=== PATIENT | female | born 1960 | race Caucasian/White ===

== ENCOUNTER 2021-08-18 16:51 | Emergency (ER) | payer OTHER ==
[~2021-08-18] VITALS: Ht 157.5 cm; Wt 83.0 kg
[2021-08-18] MEDS ORDERED: NALOXONE HCL 1 MG/ML 2 ML SYRINGE ONE (16:57)
[2021-08-18] MEDS ORDERED: SODIUM CHLORIDE 0.9% 1,000 ML IV ONE (17:15)
[2021-08-18 17:49] LABS: BASOPHILS % (AUTO) 0.3 % (0.0-2.0); EOSINOPHILS % (AUTO) 0.5 % (1.0-6.0); HEMATOCRIT 43.4 % (36-46); HEMOGLOBIN 15.1 g/dL (12.0-16.0); LYMPHOCYTES # (AUTO) 1.5 K/uL (1.0-4.8); LYMPHOCYTES % (AUTO) 16.2 % (22.0-44.0); MEAN CORPUSCULAR HEMOGLOBIN 29.9 pg (26.0-34.0); MEAN CORPUSCULAR HGB CONC 34.7 G/dL (31.0-37.0); MEAN CORPUSCULAR VOLUME 86 fL (80-100); MONOCYTES # (AUTO) 0.9 K/uL (0.1-1.0); MONOCYTES % (AUTO) 9.6 % (2.0-9.0); NEUTROPHILS % (AUTO) 73.4 % (40.0-70.0); PLATELET COUNT (AUTO) 385 K/uL (150-450); RED BLOOD CELL COUNT(AUTO) 5.04 MIL/uL (4.00-5.20); RED CELL DISTRIBUTION WIDTH 15.1 % (11.5-14.5)
[2021-08-18 17:58] LABS: CALCIUM, TOTAL 8.5 mg/dL (8.8-10.5); CREATININE 0.98 mg/dL (0.60-1.30); POTASSIUM 3.2 mmol/L (3.5-5.1)
[2021-08-18 18:04] LABS: ALBUMIN 3.3 g/dL (3.4-5.0); BILIRUBIN,TOTAL 0.2 mg/dL (0.1-1.0); MAGNESIUM 1.7 mg/dL (1.80-2.40)
[2021-08-18 19:54] LABS: AMPHET/METH SCREEN,URINE NEGATIVE (NEGATIVE); BARBITURATE SCREEN, URINE NEGATIVE (NEGATIVE); BENZODIAZEPINES SCREEN,URINE NEGATIVE (NEGATIVE); CANNABINOID SCREEN,URINE NEGATIVE (NEGATIVE); COCAINE SCREEN,URINE NEGATIVE (NEGATIVE); METHADONE SCREEN, URINE NEGATIVE (NEGATIVE); OPIATE SCREEN,URINE NEGATIVE (NEGATIVE)
[2021-08-18 19:55] LABS: PHENCYCLIDINE SCREEN,URINE NEGATIVE (NEGATIVE)
[2021-08-18 21:03] VITALS: BP 115/65
== END 2021-08-18 21:17 | disposition home or self-care (01) ==
LOC: EMS 16:51
DX: F10.129 Alcohol abuse with intoxication, unspecified (principal); R45.851 Suicidal ideations; F32.A Depression, unspecified; I73.9 Peripheral vascular disease, unspecified
CPT/HCPCS: 99285; 96360; 80053; 83735; 85025; 36415; 80307; G0480; J2310; J7030

== ENCOUNTER 2022-04-29 16:42 | Inpatient (IN) | payer OTHER ==
[~2022-04-29] VITALS: Ht 157.5 cm; Wt 66.0 kg
[2022-04-29] MEDS ORDERED: SODIUM CHLORIDE 0.9% 1,000 ML IV ONE (17:45)
[2022-04-29] MEDS ORDERED: LORazepam 2 MG/ML VIAL IVP ONE (17:45)
[2022-04-29 18:13] LABS: BASOPHILS % (AUTO) 0.5 % (0.0-2.0); EOSINOPHILS % (AUTO) 0.4 % (1.0-6.0); HEMATOCRIT 44.5 % (36-46); HEMOGLOBIN 15.1 g/dL (12.0-16.0); LYMPHOCYTES # (AUTO) 0.8 K/uL (1.0-4.8); LYMPHOCYTES % (AUTO) 12.2 % (22.0-44.0); MEAN CORPUSCULAR HEMOGLOBIN 34.5 pg (26.0-34.0); MEAN CORPUSCULAR HGB CONC 33.9 G/dL (31.0-37.0); MEAN CORPUSCULAR VOLUME 102 fL (80-100); MONOCYTES # (AUTO) 0.7 K/uL (0.1-1.0); MONOCYTES % (AUTO) 11.1 % (2.0-9.0); NEUTROPHILS # (AUTO) 4.8 K/uL (1.8-7.7); NEUTROPHILS % (AUTO) 75.8 % (40.0-70.0); PLATELET COUNT (AUTO) 105 K/uL (150-450); RED BLOOD CELL COUNT(AUTO) 4.37 MIL/uL (4.00-5.20); RED CELL DISTRIBUTION WIDTH 15.6 % (11.5-14.5)
[2022-04-29 18:24] LABS: ANION GAP 17 mmol/L (8-16); CALCIUM, TOTAL 8.9 mg/dL (8.8-10.5); CARBON DIOXIDE 22 mmol/L (22-29); CHLORIDE 103 mmol/L (98-107); CREATININE 0.54 mg/dL (0.60-1.30); GLOMERULAR FILTR. RATE CALC > 60 mL/min (>60); GLUCOSE,RANDOM 105 mg/dL (70-110); POTASSIUM 3.9 mmol/L (3.5-5.1); SODIUM SERUM 142 mmol/L (136-145); UREA NITROGEN, BLOOD 13 mg/dL (7-18)
[2022-04-29 18:30] LABS: ALANINE AMINOTRANSFERASE 104 U/L (12-78); ALBUMIN 4.1 g/dL (3.4-5.0); ALKALINE PHOSPHATASE 116 U/L (46-116); ASPARTATE AMINOTRANSFERASE 137 U/L (15-37); BILIRUBIN,TOTAL 0.5 mg/dL (0.1-1.0); TOTAL PROTEIN, SERUM 7.6 g/dL (6.4-8.2)
[2022-04-29 19:28] LABS: COVID AG,FIA SOURCE NASOPHARYNGEAL
[2022-04-29] MEDS ORDERED: MAGNESIUM SULFATE 2 GM, MVI, ADULT NO.1 WITH VIT K 10 ML, THIAMINE 100 MG, FOLIC ACID 1... IV ONE ×5 (20:30)
[2022-04-29] MEDS ORDERED: ONDANSETRON HCL 4 MG/2 ML VIAL IVP PRN (20:30)
[2022-04-29] MEDS ORDERED: MAGNESIUM HYDROXIDE SUSPENSION 30 ML UDCUP PO PRN (20:30)
[2022-04-29] MEDS ORDERED: MAGNESIUM SULFATE 4 GM/WATER 100 ML IV PRN (20:45)
[2022-04-29] MEDS ORDERED: MAGNESIUM OXIDE 400 MG TABLET PO PRN (20:45)
[2022-04-29] MEDS ORDERED: MAGNESIUM SULFATE 2 GM/WATER 50 ML IV PRN (20:45)
[2022-04-29] MEDS: FAMOTIDINE 20 MG TABLET PO SCH (21:12)
[2022-04-30] MEDS: LORazepam 2 MG/ML VIAL IVP PRN ×4 (00:22→20:11)
[2022-04-30 09:46] VITALS: BP 111/87
[2022-04-30] MEDS: MULTIVITAMINS WITH MINERALS, THERAPEUTIC TABLET PO SCH (10:28)
[2022-04-30] MEDS: FAMOTIDINE 20 MG TABLET PO SCH ×2 (10:28→20:11)
[2022-04-30] MEDS: ACETAMINOPHEN 325 MG TABLET PO PRN ×2 (10:28→16:27)
[2022-04-30 12:04] VITALS: BP 125/80
[2022-04-30 15:40] VITALS: BP 136/92
[2022-04-30] MEDS: BISMUTH SUBSALICYLATE 262 MG CHEWABLE TABLET CHEW PRN (16:49)
[2022-04-30 20:02] VITALS: BP 114/91
[2022-04-30] MEDS: NICOTINE 21 MG/24 HOUR PATCH TD SCH (20:11)
[2022-04-30 23:57] VITALS: BP 141/82
[2022-05-01] MEDS: ACETAMINOPHEN 325 MG TABLET PO PRN ×2 (02:37→09:17)
[2022-05-01 05:50] VITALS: BP 144/87
[2022-05-01 08:00] VITALS: BP 165/101
[2022-05-01] MEDS: FAMOTIDINE 20 MG TABLET PO SCH ×2 (09:10→20:35)
[2022-05-01] MEDS: MULTIVITAMINS WITH MINERALS, THERAPEUTIC TABLET PO SCH (09:10)
[2022-05-01] MEDS: LORazepam 2 MG/ML VIAL IVP PRN ×2 (09:10→20:35)
[2022-05-01] MEDS: NICOTINE 21 MG/24 HOUR PATCH TD SCH (09:10)
[2022-05-01 12:00] VITALS: BP 153/106
[2022-05-01] MEDS: AmLODIPine BESYLATE 5 MG TABLET PO SCH (12:19)
[2022-05-01] MEDS: BISMUTH SUBSALICYLATE 262 MG CHEWABLE TABLET CHEW PRN (15:28)
[2022-05-01 16:00] VITALS: BP 135/88
[2022-05-01 20:40] VITALS: BP 188/116
[2022-05-01] MEDS: HydrALAZINE HCL 20 MG/ML VIAL IVP PRN (22:11)
[2022-05-01 23:18] VITALS: BP 176/109
[2022-05-02] MEDS: ACETAMINOPHEN 325 MG TABLET PO PRN ×4 (02:56→20:14)
[2022-05-02 04:00] VITALS: BP 159/98
[2022-05-02] MEDS: HydrALAZINE HCL 20 MG/ML VIAL IVP PRN ×2 (06:01→17:02)
[2022-05-02 07:48] LABS: ALANINE AMINOTRANSFERASE 61 U/L (12-78); ALBUMIN 3.5 g/dL (3.4-5.0); ALKALINE PHOSPHATASE 100 U/L (46-116); ANION GAP 14 mmol/L (8-16); ASPARTATE AMINOTRANSFERASE 45 U/L (15-37); BILIRUBIN,TOTAL 0.5 mg/dL (0.1-1.0); CALCIUM, TOTAL 9.1 mg/dL (8.8-10.5); CARBON DIOXIDE 22 mmol/L (22-29); CHLORIDE 106 mmol/L (98-107); CREATININE 0.54 mg/dL (0.60-1.30); GLOMERULAR FILTR. RATE CALC > 60 mL/min (>60); GLUCOSE,RANDOM 97 mg/dL (70-110); POTASSIUM 3.3 mmol/L (3.5-5.1); SODIUM SERUM 142 mmol/L (136-145); TOTAL PROTEIN, SERUM 6.8 g/dL (6.4-8.2); UREA NITROGEN, BLOOD 6 mg/dL (7-18)
[2022-05-02 08:12] VITALS: BP 159/106
[2022-05-02] MEDS: AmLODIPine BESYLATE 5 MG TABLET PO SCH (09:51)
[2022-05-02] MEDS: MULTIVITAMINS WITH MINERALS, THERAPEUTIC TABLET PO SCH (09:51)
[2022-05-02] MEDS: NICOTINE 21 MG/24 HOUR PATCH TD SCH (09:51)
[2022-05-02] MEDS: FAMOTIDINE 20 MG TABLET PO SCH ×2 (09:51→20:14)
[2022-05-02] MEDS ORDERED: POTASSIUM CHL 10 MEQ/WATER 50 ML IV PRN (10:30)
[2022-05-02] MEDS ORDERED: POTASSIUM CHLORIDE 20 MEQ ER TABLET PO PRN (10:30)
[2022-05-02] MEDS: METOPROLOL TARTRATE 25 MG TABLET PO SCH ×2 (11:41→21:53)
[2022-05-02 16:24] VITALS: BP 180/112
[2022-05-02 16:49] VITALS: BP 165/111
[2022-05-02] MEDS ORDERED: AmLODIPine BESYLATE 5 MG TABLET PO ONE (17:15)
[2022-05-02 20:01] VITALS: BP 115/68
[2022-05-03 00:12] VITALS: BP 126/86
[2022-05-03 04:38] VITALS: BP 117/91
[2022-05-03] MEDS: ACETAMINOPHEN 325 MG TABLET PO PRN (04:38)
[2022-05-03 08:05] VITALS: BP 146/93
[2022-05-03] MEDS: METOPROLOL TARTRATE 25 MG TABLET PO SCH (08:11)
[2022-05-03] MEDS: MULTIVITAMINS WITH MINERALS, THERAPEUTIC TABLET PO SCH (08:11)
[2022-05-03] MEDS: FAMOTIDINE 20 MG TABLET PO SCH (08:11)
[2022-05-03] MEDS: NICOTINE 21 MG/24 HOUR PATCH TD SCH (08:12)
[2022-05-03] MEDS ORDERED: AmLODIPine BESYLATE 10 MG TABLET PO SCH (09:00)
[2022-05-03 11:55] VITALS: BP 139/87
[2022-05-03 12:07] LABS: APPEARANCE,URINE CLEAR (CLEAR); BILIRUBIN,URINE NEGATIVE (NEGATIVE); GLUCOSE, URINE (UA) NEGATIVE (NEGATIVE); KETONES,URINE NEGATIVE (NEGATIVE); LEUKOCYTE ESTERASE ,URINE NEGATIVE (NEGATIVE); NITRATE,URINE NEGATIVE (NEGATIVE); OCCULT BLOOD,URINE NEGATIVE (NEGATIVE); PROTEIN,URINE NEGATIVE (NEGATIVE); SPECIFIC GRAVITIY, URINE 1.009 (1.003-1.030); UROBILINOGEN,URINE <=1.0 mg/dL (<=1.0)
[2022-05-03 12:13] LABS: AMPHET/METH SCREEN,URINE NEGATIVE (NEGATIVE); BARBITURATE SCREEN, URINE NEGATIVE (NEGATIVE); BENZODIAZEPINES SCREEN,URINE NEGATIVE (NEGATIVE); CANNABINOID SCREEN,URINE NEGATIVE (NEGATIVE); COCAINE SCREEN,URINE NEGATIVE (NEGATIVE); METHADONE SCREEN, URINE NEGATIVE (NEGATIVE); OPIATE SCREEN,URINE NEGATIVE (NEGATIVE); PHENCYCLIDINE SCREEN,URINE NEGATIVE (NEGATIVE)
== END 2022-05-03 15:05 | disposition home or self-care (01) | DRG 897 ==
LOC: EMS 16:48 → ICUN 21:00 → UNDOADMIN 21:00 → ICUN 04-30 05:00 → 5N 04-30 05:00
PROVIDERS: ADMIT Internal Medicine; ATTEND Internal Medicine
DX: F10.139 Alcohol abuse with withdrawal, unspecified (principal); F33.1 Major depressive disorder, recurrent, moderate; E83.42 Hypomagnesemia; Y90.8 Blood alcohol level of 240 mg/100 ml or more; F99 Mental disorder, not otherwise specified; Z20.822 Contact with and (suspected) exposure to COVID-19; D69.6 Thrombocytopenia, unspecified; E87.6 Hypokalemia; I10 Essential (primary) hypertension; I73.9 Peripheral vascular disease, unspecified
CPT/HCPCS: 80053; 80307; 81003; 83735; 84132; 85025; 99285; G0480; J0360; J2060; J3411; J3475; J3490; J7030

== ENCOUNTER 2022-07-28 16:45 | Inpatient (IN) | payer MEDICAID, OTHER ==
[~2022-07-28] VITALS: Ht 152.4 cm; Wt 69.9 kg
[2022-07-28] MEDS ORDERED: AMLO10TA55 PO (18:46)
[2022-07-28] MEDS ORDERED: SERT-439 PO (18:46)
[2022-07-28] MEDS ORDERED: LISI10TA24 PO (18:46)
[2022-07-28] MEDS ORDERED: ATOR40TA71 PO (18:46)
[2022-07-28] MEDS ORDERED: FAMO20TA8 PO (18:46)
[2022-07-28] MEDS ORDERED: FOLI-130 PO (18:46)
[2022-07-28] MEDS ORDERED: MIRT7.5T11 PO (18:48)
[2022-07-28] MEDS ORDERED: METO-408 PO (18:48)
[2022-07-28 19:11] LABS: COVID AG,FIA SOURCE NASOPHARYNGEAL
[2022-07-28 19:25] LABS: BASOPHILS % (AUTO) 0.8 % (0.0-2.0); EOSINOPHILS % (AUTO) 1.1 % (1.0-6.0); HEMATOCRIT 43.7 % (36-46); HEMOGLOBIN 14.7 g/dL (12.0-16.0); LYMPHOCYTES # (AUTO) 1.4 K/uL (1.0-4.8); LYMPHOCYTES % (AUTO) 30.3 % (22.0-44.0); MEAN CORPUSCULAR HEMOGLOBIN 33.1 pg (26.0-34.0); MEAN CORPUSCULAR HGB CONC 33.7 G/dL (31.0-37.0); MEAN CORPUSCULAR VOLUME 98 fL (80-100); MONOCYTES # (AUTO) 0.4 K/uL (0.1-1.0); MONOCYTES % (AUTO) 9.1 % (2.0-9.0); NEUTROPHILS # (AUTO) 2.8 K/uL (1.8-7.7); NEUTROPHILS % (AUTO) 58.7 % (40.0-70.0); PLATELET COUNT (AUTO) 197 K/uL (150-450); RED BLOOD CELL COUNT(AUTO) 4.46 MIL/uL (4.00-5.20); RED CELL DISTRIBUTION WIDTH 16.4 % (11.5-14.5)
[2022-07-28 19:33] LABS: ANION GAP 16 mmol/L (8-16); CALCIUM, TOTAL 8.6 mg/dL (8.8-10.5); CARBON DIOXIDE 24 mmol/L (22-29); CHLORIDE 105 mmol/L (98-107); CREATININE 0.63 mg/dL (0.60-1.30); GLOMERULAR FILTR. RATE CALC > 60 mL/min (>60); GLUCOSE,RANDOM 84 mg/dL (70-110); POTASSIUM 3.7 mmol/L (3.5-5.1); SODIUM SERUM 145 mmol/L (136-145)
[2022-07-28 19:35] LABS: ALANINE AMINOTRANSFERASE 31 U/L (12-78); ALBUMIN 3.7 g/dL (3.4-5.0); ALKALINE PHOSPHATASE 121 U/L (46-116); ASPARTATE AMINOTRANSFERASE 53 U/L (15-37); BILIRUBIN,TOTAL 0.3 mg/dL (0.1-1.0); TOTAL PROTEIN, SERUM 7.7 g/dL (6.4-8.2)
[2022-07-28] MEDS ORDERED: LORazepam 2 MG TABLET PO ONE (22:45)
[2022-07-28] MEDS ORDERED: HALOPERIDOL 5 MG TABLET PO PRN (22:45)
[2022-07-29] VITALS (8 sets, daily range): BP systolic 130–152; BP diastolic 78–89; PULSE 98–108; RESP 18–19; TEMP 97.6–98.7; O2SAT 94–99
[2022-07-29] MEDS: ZOLPIDEM TARTRATE 10 MG TABLET PO PRN ×3 (01:45→20:28)
[2022-07-29] MEDS: LORazepam 2 MG TABLET PO PRN (02:15)
[2022-07-29] MEDS ORDERED: ALBUTEROL SULFATE HFA 90 MCG/PUFF 8 GM INHALER IH PRN (10:45)
[2022-07-29] MEDS ORDERED: DOCUSATE SODIUM 100 MG CAPSULE PO PRN (10:45)
[2022-07-29] MEDS ORDERED: MAG HYDROX/AL HYDROX/SIMETH ES 30 ML SUSPENSION UDCUP PO PRN (10:45)
[2022-07-29] MEDS ORDERED: LOPERAMIDE HCL 2 MG CAPSULE PO PRN (10:45)
[2022-07-29] MEDS ORDERED: GuaiFENesin/D-METHORPHAN [SUGAR-FREE] 200-20MG/10 ML SYRUP UDCUP PO PRN (10:45)
[2022-07-29] MEDS ORDERED: CloNIDine HCL 0.1 MG TABLET PO PRN (10:45)
[2022-07-29] MEDS ORDERED: ONDANSETRON HCL 4 MG TABLET PO PRN (10:45)
[2022-07-29] MEDS ORDERED: PETROLATUM,WHITE 28 GM JELLY TP PRN (10:45)
[2022-07-29] MEDS ORDERED: MAGNESIUM HYDROXIDE SUSPENSION 30 ML UDCUP PO PRN (10:45)
[2022-07-29] MEDS ORDERED: ACETAMINOPHEN 325 MG TABLET PO PRN (10:45)
[2022-07-29] MEDS: NICOTINE 14 MG/24 HOUR PATCH TD PRN (11:02)
[2022-07-29] MEDS: FAMOTIDINE 20 MG TABLET PO SCH (16:13)
[2022-07-29] MEDS: MIRTAZAPINE 15 MG TABLET PO SCH (20:28)
[2022-07-29] MEDS: IBUPROFEN 400 MG TABLET PO PRN (20:29)
[2022-07-30 07:25] LABS: THYROID STIMULATING HORMONE 4.84 uIU/mL (0.36-3.74)
[2022-07-30 07:48] LABS: CHOL/HDL RATIO 1.9 (3.9-5.7)
[2022-07-30] MEDS ORDERED: FOLIC ACID 1 MG TABLET PO SCH (09:00)
[2022-07-30] MEDS: AmLODIPine BESYLATE 10 MG TABLET PO SCH (09:04)
[2022-07-30] MEDS: ATORVASTATIN CALCIUM 40 MG TABLET PO SCH (09:04)
[2022-07-30] MEDS: METOPROLOL SUCCINATE 25 MG ER TABLET PO SCH (09:04)
[2022-07-30] MEDS: FAMOTIDINE 20 MG TABLET PO SCH ×2 (09:04→16:53)
[2022-07-30] MEDS: FOLIC ACID 1 MG TABLET PO SCH (09:04)
[2022-07-30] MEDS: MULTIVITAMINS WITH MINERALS, THERAPEUTIC TABLET PO SCH (09:05)
[2022-07-30] MEDS: THIAMINE 100 MG TABLET PO SCH (09:09)
[2022-07-30 09:56] VITALS: BP 152/92; PULSE 96; RESP 18; TEMP 97; O2SAT 100
[2022-07-30 20:20] VITALS: BP 140/77; PULSE 86; RESP 19; TEMP 98.4; O2SAT 97
[2022-07-30] MEDS: ZOLPIDEM TARTRATE 10 MG TABLET PO PRN (20:46)
[2022-07-30] MEDS: MIRTAZAPINE 15 MG TABLET PO SCH (20:46)
[2022-07-30 22:00] VITALS: BP 143/80; PULSE 90; RESP 18; TEMP 98.4; O2SAT 97
[2022-07-30] MEDS: IBUPROFEN 400 MG TABLET PO PRN (22:03)
[2022-07-30 23:03] VITALS: TEMP 98.2
[2022-07-31] MEDS: LORazepam 2 MG TABLET PO PRN (01:52)
[2022-07-31] MEDS: FAMOTIDINE 20 MG TABLET PO SCH ×2 (09:06→16:39)
[2022-07-31] MEDS: FOLIC ACID 1 MG TABLET PO SCH (09:06)
[2022-07-31] MEDS: MULTIVITAMINS WITH MINERALS, THERAPEUTIC TABLET PO SCH (09:06)
[2022-07-31] MEDS: AmLODIPine BESYLATE 10 MG TABLET PO SCH (09:06)
[2022-07-31] MEDS: THIAMINE 100 MG TABLET PO SCH (09:07)
[2022-07-31] MEDS: ATORVASTATIN CALCIUM 40 MG TABLET PO SCH (09:07)
[2022-07-31] MEDS: NICOTINE 14 MG/24 HOUR PATCH TD PRN (09:08)
[2022-07-31] MEDS: METOPROLOL SUCCINATE 25 MG ER TABLET PO SCH (09:11)
[2022-07-31 09:16] VITALS: BP 147/99; PULSE 98; RESP 18; TEMP 97.6; O2SAT 96
[2022-07-31] MEDS: IBUPROFEN 400 MG TABLET PO PRN ×2 (13:12→21:20)
[2022-07-31] MEDS: MIRTAZAPINE 15 MG TABLET PO SCH (20:10)
[2022-07-31 21:18] VITALS: BP 103/73; PULSE 62; RESP 18; TEMP 97.1; O2SAT 98
[2022-08-01] MEDS: THIAMINE 100 MG TABLET PO SCH (08:37)
[2022-08-01] MEDS: FAMOTIDINE 20 MG TABLET PO SCH ×2 (08:37→16:24)
[2022-08-01] MEDS: MULTIVITAMINS WITH MINERALS, THERAPEUTIC TABLET PO SCH (08:37)
[2022-08-01] MEDS: FOLIC ACID 1 MG TABLET PO SCH (08:38)
[2022-08-01] MEDS: METOPROLOL SUCCINATE 25 MG ER TABLET PO SCH (08:38)
[2022-08-01] MEDS: AmLODIPine BESYLATE 10 MG TABLET PO SCH (08:38)
[2022-08-01] MEDS: ATORVASTATIN CALCIUM 40 MG TABLET PO SCH (08:38)
[2022-08-01] MEDS: NICOTINE 14 MG/24 HOUR PATCH TD PRN (08:44)
[2022-08-01 11:04] VITALS: BP 148/89; PULSE 100; RESP 18; TEMP 97.5; O2SAT 97
[2022-08-01 20:10] VITALS: BP 142/85; PULSE 90; RESP 18; TEMP 97.6; O2SAT 98
[2022-08-01] MEDS: LORazepam 2 MG TABLET PO PRN (20:59)
[2022-08-01] MEDS: MIRTAZAPINE 15 MG TABLET PO SCH (20:59)
[2022-08-01 21:10] VITALS: BP 145/82; PULSE 88; RESP 18; TEMP 97.7; O2SAT 98
[2022-08-01 21:19] VITALS: TEMP 97.7
[2022-08-01] MEDS: IBUPROFEN 400 MG TABLET PO PRN (21:19)
[2022-08-02] MEDS: AmLODIPine BESYLATE 10 MG TABLET PO SCH (09:07)
[2022-08-02] MEDS: ATORVASTATIN CALCIUM 40 MG TABLET PO SCH (09:10)
[2022-08-02] MEDS: MULTIVITAMINS WITH MINERALS, THERAPEUTIC TABLET PO SCH (09:10)
[2022-08-02] MEDS: METOPROLOL SUCCINATE 25 MG ER TABLET PO SCH (09:10)
[2022-08-02] MEDS: FOLIC ACID 1 MG TABLET PO SCH (09:11)
[2022-08-02] MEDS: FAMOTIDINE 20 MG TABLET PO SCH (09:11)
[2022-08-02] MEDS: THIAMINE 100 MG TABLET PO SCH (09:11)
[2022-08-02] MEDS: NICOTINE 14 MG/24 HOUR PATCH TD PRN (09:45)
[2022-08-02] MEDS ORDERED: THIA100T80 PO (12:17)
[2022-08-02] MEDS ORDERED: MIRT-89 PO (12:17)
== END 2022-08-02 13:00 | disposition home or self-care (01) | DRG 751 ==
LOC: EMS 16:46 → 3EI 23:00
PROVIDERS: ADMIT Psychiatry & Neurology Child & Adolescent Psychiatry; ATTEND Psychiatry & Neurology Child & Adolescent Psychiatry
DX: F33.2 Major depressive disorder, recurrent severe without psychotic features (principal); R45.851 Suicidal ideations; E78.5 Hyperlipidemia, unspecified; Z20.822 Contact with and (suspected) exposure to COVID-19; F10.229 Alcohol dependence with intoxication, unspecified; I10 Essential (primary) hypertension; K21.9 Gastro-esophageal reflux disease without esophagitis; I73.9 Peripheral vascular disease, unspecified; Z79.899 Other long term (current) drug therapy
CPT/HCPCS: 80053; 80061; 83036; 84443; 85025; 99285; G0480

== ENCOUNTER 2023-01-01 01:32 | Emergency (ER) | payer MEDICAID ==
[~2023-01-01] VITALS: Ht 152.4 cm; Wt 77.3 kg
[~2023-01-01 01:32] MED LIST: AMLO10TA55 PO; ATOR40TA71 PO; FAMO20TA8 PO; METO-408 PO; MIRT-89 PO; THIA100T80 PO
[2023-01-01 02:06] VITALS: TEMP 98.3
[2023-01-01 02:31] VITALS: BP 97/67; PULSE 83; RESP 16
[2023-01-01 02:37] LABS: BASOPHILS % (AUTO) 0.3 % (0.0-2.0); EOSINOPHILS % (AUTO) 1.5 % (1.0-6.0); HEMATOCRIT 37.4 % (36-46); HEMOGLOBIN 12.7 g/dL (12.0-16.0); LYMPHOCYTES # (AUTO) 1.4 K/uL (1.0-4.8); MEAN CORPUSCULAR HEMOGLOBIN 32.5 pg (26.0-34.0); MEAN CORPUSCULAR HGB CONC 33.9 G/dL (31.0-37.0); MEAN CORPUSCULAR VOLUME 96 fL (80-100); MONOCYTES # (AUTO) 0.4 K/uL (0.1-1.0); MONOCYTES % (AUTO) 8.9 % (2.0-9.0); NEUTROPHILS % (AUTO) 61.3 % (40.0-70.0); PLATELET COUNT (AUTO) 135 K/uL (150-450); RED BLOOD CELL COUNT(AUTO) 3.91 MIL/uL (4.00-5.20); RED CELL DISTRIBUTION WIDTH 15.6 % (11.5-14.5); WHITE BLOOD COUNT (AUTO) 4.8 K/uL (4.5-11.0)
[2023-01-01 02:46] LABS: ANION GAP 12 mmol/L (8-16); CALCIUM, TOTAL 8.1 mg/dL (8.8-10.5); CARBON DIOXIDE 26 mmol/L (22-29); CHLORIDE 107 mmol/L (98-107); CREATININE 0.78 mg/dL (0.60-1.30); GLOMERULAR FILTR. RATE CALC > 60 mL/min (>60); GLUCOSE,RANDOM 116 mg/dL (70-110); POTASSIUM 3.8 mmol/L (3.5-5.1); SODIUM SERUM 145 mmol/L (136-145); UREA NITROGEN, BLOOD 16 mg/dL (7-18)
[2023-01-01 02:53] LABS: ALCOHOL, BLOOD (SERUM) 191 mg/dL (0-10)
[2023-01-01 02:54] LABS: ALANINE AMINOTRANSFERASE 22 U/L (12-78); ALBUMIN 3.1 g/dL (3.4-5.0); ALKALINE PHOSPHATASE 104 U/L (46-116); ASPARTATE AMINOTRANSFERASE 21 U/L (15-37); BILIRUBIN,TOTAL 0.1 mg/dL (0.1-1.0); TOTAL PROTEIN, SERUM 7.2 g/dL (6.4-8.2)
[2023-01-01] MEDS ORDERED: ACETAMINOPHEN 325 MG TABLET PO ONE (03:45)
[2023-01-01] MEDS ORDERED: LORazepam 1 MG TABLET PO ONE (04:30)
== END 2023-01-01 04:49 | disposition home or self-care (01) ==
LOC: EMS 01:32
DX: F10.229 Alcohol dependence with intoxication, unspecified (principal); F32.A Depression, unspecified; F17.210 Nicotine dependence, cigarettes, uncomplicated; Y90.9 Presence of alcohol in blood, level not specified
CPT/HCPCS: 99291; 80053; 85025; 36415; G0480

== ENCOUNTER 2023-01-10 22:09 | Inpatient (IN) | payer MEDICAID ==
[~2023-01-10] VITALS: Ht 152.4 cm; Wt 68.9 kg
[2023-01-10 22:40] LABS: BASOPHILS % (AUTO) 0.7 % (0.0-2.0); EOSINOPHILS % (AUTO) 0.6 % (1.0-6.0); HEMATOCRIT 43.1 % (36-46); HEMOGLOBIN 14.6 g/dL (12.0-16.0); LYMPHOCYTES # (AUTO) 1.4 K/uL (1.0-4.8); LYMPHOCYTES % (AUTO) 26.1 % (22.0-44.0); MEAN CORPUSCULAR HEMOGLOBIN 32.8 pg (26.0-34.0); MEAN CORPUSCULAR VOLUME 97 fL (80-100); MONOCYTES # (AUTO) 0.5 K/uL (0.1-1.0); MONOCYTES % (AUTO) 8.9 % (2.0-9.0); NEUTROPHILS # (AUTO) 3.4 K/uL (1.8-7.7); NEUTROPHILS % (AUTO) 63.7 % (40.0-70.0); PLATELET COUNT (AUTO) 226 K/uL (150-450); RED BLOOD CELL COUNT(AUTO) 4.46 MIL/uL (4.00-5.20); RED CELL DISTRIBUTION WIDTH 16.2 % (11.5-14.5); WHITE BLOOD COUNT (AUTO) 5.3 K/uL (4.5-11.0)
[2023-01-10 22:46] LABS: ANION GAP 12 mmol/L (8-16); CALCIUM, TOTAL 8.7 mg/dL (8.8-10.5); CARBON DIOXIDE 24 mmol/L (22-29); CHLORIDE 104 mmol/L (98-107); CREATININE 0.74 mg/dL (0.60-1.30); GLOMERULAR FILTR. RATE CALC > 60 mL/min (>60); GLUCOSE,RANDOM 106 mg/dL (70-110); POTASSIUM 3.4 mmol/L (3.5-5.1); SODIUM SERUM 140 mmol/L (136-145); UREA NITROGEN, BLOOD 13 mg/dL (7-18)
[2023-01-10 22:51] LABS: ALANINE AMINOTRANSFERASE 20 U/L (12-78); ALBUMIN 3.7 g/dL (3.4-5.0); ALKALINE PHOSPHATASE 103 U/L (46-116); ASPARTATE AMINOTRANSFERASE 21 U/L (15-37); BILIRUBIN,TOTAL 0.3 mg/dL (0.1-1.0); TOTAL PROTEIN, SERUM 8.1 g/dL (6.4-8.2)
[2023-01-10 22:55] LABS: ALCOHOL, BLOOD (SERUM) 241 mg/dL (0-10)
[2023-01-10 23:02] LABS: COVID AG,FIA SOURCE NASAL SWAB
[2023-01-10 23:06] LABS: SARS-COV2 (COVID) ANTIGEN,FIA Negative (Negative)
[2023-01-11] VITALS (13 sets, daily range): BP systolic 111–159; BP diastolic 78–92; PULSE 71–103; RESP 17–20; TEMP 97.9–98.7; O2SAT 98–99
[2023-01-11] MEDS ORDERED: ACETAMINOPHEN 500 MG TABLET PO ONE (02:30)
[2023-01-11 02:38] LABS: ALCOHOL, URINE DRUG SCREEN POSITIVE (NEGATIVE); AMPHET/METH SCREEN,URINE NEGATIVE (NEGATIVE); BARBITURATE SCREEN, URINE NEGATIVE (NEGATIVE); BENZODIAZEPINES SCREEN,URINE NEGATIVE (NEGATIVE); CANNABINOID SCREEN,URINE NEGATIVE (NEGATIVE); COCAINE SCREEN,URINE NEGATIVE (NEGATIVE); METHADONE SCREEN, URINE NEGATIVE (NEGATIVE); OPIATE SCREEN,URINE NEGATIVE (NEGATIVE); PHENCYCLIDINE SCREEN,URINE NEGATIVE (NEGATIVE)
[2023-01-11 02:43] LABS: PH,URINE DRUG SCREEN 5.5 (5.0-8.0)
[2023-01-11] MEDS ORDERED: LORazepam 2 MG/ML VIAL IM ONE (03:45)
[2023-01-11] MEDS ORDERED: ZOLPIDEM TARTRATE 10 MG TABLET PO PRN (07:15)
[2023-01-11] MEDS ORDERED: LORazepam 2 MG TABLET PO PRN ×2 (07:15→13:00)
[2023-01-11] MEDS ORDERED: HALOPERIDOL 5 MG TABLET PO PRN (07:15)
[2023-01-11] MEDS ORDERED: SERT-439 PO (10:19)
[2023-01-11] MEDS: SERTRALINE HCL 50 MG TABLET PO SCH (11:11)
[2023-01-11] MEDS ORDERED: NICOTINE 14 MG/24 HOUR PATCH TD SCH (12:45)
[2023-01-11] MEDS: FOLIC ACID 1 MG TABLET PO SCH (13:04)
[2023-01-11] MEDS: THIAMINE 100 MG TABLET PO SCH (13:04)
[2023-01-11] MEDS: NICOTINE 21 MG/24 HOUR PATCH TD SCH (13:08)
[2023-01-11] MEDS: MULTIVITAMINS WITH MINERALS, THERAPEUTIC TABLET PO SCH (13:16)
[2023-01-11] MEDS ORDERED: DOCUSATE SODIUM 100 MG CAPSULE PO PRN (13:30)
[2023-01-11] MEDS ORDERED: MAGNESIUM HYDROXIDE SUSPENSION 30 ML UDCUP PO PRN (13:30)
[2023-01-11] MEDS ORDERED: ACETAMINOPHEN 325 MG TABLET PO PRN (13:30)
[2023-01-11] MEDS ORDERED: GuaiFENesin/D-METHORPHAN [SUGAR-FREE] 200-20MG/10 ML SYRUP UDCUP PO PRN (13:30)
[2023-01-11] MEDS ORDERED: LOPERAMIDE HCL 2 MG CAPSULE PO PRN (13:30)
[2023-01-11] MEDS ORDERED: MAG HYDROX/ALUMINUM HYD/SIMETH ES 30 ML SUSPENSION UDCUP PO PRN (13:30)
[2023-01-11] MEDS ORDERED: CloNIDine HCL 0.1 MG TABLET PO PRN (13:30)
[2023-01-11] MEDS ORDERED: ONDANSETRON HCL 4 MG TABLET PO PRN (13:30)
[2023-01-11] MEDS ORDERED: PETROLATUM,WHITE 28 GM JELLY TP PRN (13:30)
[2023-01-11] MEDS ORDERED: ALBUTEROL SULFATE HFA 90 MCG/PUFF 8 GM INHALER IH PRN (13:30)
[2023-01-11] MEDS: CYANOCOBALAMIN 100 MCG TABLET PO SCH (13:32)
[2023-01-11] MEDS: IBUPROFEN 400 MG TABLET PO PRN ×2 (13:57→22:24)
[2023-01-12] VITALS (12 sets, daily range): BP systolic 134–161; BP diastolic 79–95; PULSE 4–100; RESP 17–18; TEMP 97.2–98; O2SAT 96–100
[2023-01-12] MEDS ORDERED: LORazepam 2 MG TABLET PO PRN (07:00)
[2023-01-12 09:00] LABS: HEMOGLOBIN A1C 5.1 % (3.8-5.6)
[2023-01-12 09:03] LABS: THYROID STIMULATING HORMONE 3.36 uIU/mL (0.36-3.74)
[2023-01-12] MEDS: CYANOCOBALAMIN 100 MCG TABLET PO SCH (09:03)
[2023-01-12] MEDS: FOLIC ACID 1 MG TABLET PO SCH (09:04)
[2023-01-12] MEDS: MULTIVITAMINS WITH MINERALS, THERAPEUTIC TABLET PO SCH (09:05)
[2023-01-12] MEDS: THIAMINE 100 MG TABLET PO SCH (09:05)
[2023-01-12] MEDS: SERTRALINE HCL 50 MG TABLET PO SCH (09:05)
[2023-01-12] MEDS: LORazepam 2 MG TABLET PO SCH ×4 (09:05→20:57)
[2023-01-12] MEDS: NICOTINE 21 MG/24 HOUR PATCH TD SCH (09:08)
[2023-01-12 10:09] LABS: CHOL/HDL RATIO 3.4 (3.9-5.7); POTASSIUM 3.3 mmol/L (3.5-5.1)
[2023-01-12] MEDS: IBUPROFEN 400 MG TABLET PO PRN (14:52)
[2023-01-13] MEDS ORDERED: POTASSIUM CHLORIDE 20 MEQ ER TABLET PO ONE (08:00)
[2023-01-13 09:00] VITALS: BP 142/87; PULSE 86; RESP 18; TEMP 97.3
[2023-01-13] MEDS: THIAMINE 100 MG TABLET PO SCH (09:40)
[2023-01-13] MEDS: NICOTINE 21 MG/24 HOUR PATCH TD SCH (09:40)
[2023-01-13] MEDS: MULTIVITAMINS WITH MINERALS, THERAPEUTIC TABLET PO SCH (09:40)
[2023-01-13] MEDS: CYANOCOBALAMIN 100 MCG TABLET PO SCH (09:40)
[2023-01-13] MEDS: SERTRALINE HCL 50 MG TABLET PO SCH (09:40)
[2023-01-13] MEDS: FOLIC ACID 1 MG TABLET PO SCH (09:41)
[2023-01-13] MEDS: LORazepam 2 MG TABLET PO SCH ×4 (09:41→20:55)
[2023-01-13 13:02] VITALS: BP 160/99; PULSE 98; RESP 18; TEMP 98.3; O2SAT 98
[2023-01-13 18:29] VITALS: BP 132/99; PULSE 109; RESP 18; TEMP 97.9
[2023-01-13] MEDS: IBUPROFEN 400 MG TABLET PO PRN (18:29)
[2023-01-13 21:44] VITALS: BP 157/82; PULSE 82; RESP 17; TEMP 97.6
[2023-01-14] MEDS ORDERED: LORazepam 1 MG TABLET PO PRN (07:00)
[2023-01-14] MEDS: THIAMINE 100 MG TABLET PO SCH (08:15)
[2023-01-14] MEDS: CYANOCOBALAMIN 100 MCG TABLET PO SCH (08:15)
[2023-01-14] MEDS: SERTRALINE HCL 50 MG TABLET PO SCH (08:15)
[2023-01-14] MEDS: NICOTINE 21 MG/24 HOUR PATCH TD SCH (08:15)
[2023-01-14] MEDS: MULTIVITAMINS WITH MINERALS, THERAPEUTIC TABLET PO SCH (08:15)
[2023-01-14] MEDS: FOLIC ACID 1 MG TABLET PO SCH (08:16)
[2023-01-14 08:37] VITALS: BP 164/106; PULSE 85; RESP 18; TEMP 98.1
[2023-01-14] MEDS: IBUPROFEN 400 MG TABLET PO PRN (08:37)
[2023-01-14] MEDS ORDERED: AmLODIPine BESYLATE 10 MG TABLET PO SCH (09:00)
[2023-01-14] MEDS ORDERED: ATORVASTATIN CALCIUM 40 MG TABLET PO SCH (09:00)
[2023-01-14] MEDS ORDERED: LORazepam 1 MG TABLET PO SCH (09:00)
[2023-01-14] MEDS ORDERED: METOPROLOL SUCCINATE 25 MG ER TABLET PO SCH (09:00)
[2023-01-14 09:37] VITALS: BP 135/85; PULSE 87; RESP 18; TEMP 98.3
[2023-01-14 10:14] VITALS: BP_SYST 104; BP_SYST 164; BP_DIAS 106; BP_DIAS 89; PULSE 65; PULSE 85; RESP 18; TEMP 98.1
[2023-01-14] MEDS ORDERED: ATOR40TA28 PO (14:35)
[2023-01-14] MEDS ORDERED: AMLO-258 PO (14:35)
[2023-01-14] MEDS ORDERED: SERT-162 PO (14:35)
[2023-01-14] MEDS ORDERED: METO25XL PO (14:35)
[2023-01-15] MEDS ORDERED: LORazepam 1 MG TABLET PO PRN (07:00)
== END 2023-01-14 13:12 | disposition home or self-care (01) | DRG 751 ==
LOC: EMS 22:10 → 3EI 01-11 08:13
PROVIDERS: ADMIT Psychiatry & Neurology Psychiatry; ATTEND Psychiatry & Neurology Psychiatry
PROC: GZHZZZZ Group Psychotherapy (ICD-10-PCS; principal; 2023-01-11)
DX: F33.2 Major depressive disorder, recurrent severe without psychotic features (principal); R45.851 Suicidal ideations; K21.9 Gastro-esophageal reflux disease without esophagitis; E78.5 Hyperlipidemia, unspecified; I10 Essential (primary) hypertension; E87.6 Hypokalemia; Y90.8 Blood alcohol level of 240 mg/100 ml or more; F17.210 Nicotine dependence, cigarettes, uncomplicated; I73.9 Peripheral vascular disease, unspecified; F10.129 Alcohol abuse with intoxication, unspecified; Z79.899 Other long term (current) drug therapy; Z59.00 Homelessness unspecified; Z20.822 Contact with and (suspected) exposure to COVID-19
CPT/HCPCS: 80053; 80061; 80307; 83036; 84132; 84443; 85025; 99285; G0480; J2060

== ENCOUNTER 2023-02-05 16:42 | Emergency (ER) | payer MEDICAID ==
[~2023-02-05] VITALS: Ht 177.8 cm; Wt 72.7 kg
[~2023-02-05 16:42] MED LIST changes: +AMLO-258 PO; -AMLO10TA55 PO; +ATOR40TA28 PO; -ATOR40TA71 PO; +CYAN-53 PO; -FAMO20TA8 PO; +FOLI-130 PO; +LISI10TA24 PO; -METO-408 PO; +METO25XL PO; -MIRT-89 PO; +MULT-1366 PO; +SERT-162 PO; -THIA100T80 PO; +THIA100T92 PO
[2023-02-05] MEDS ORDERED: ASPI-1450 PO (16:57)
[2023-02-05] MEDS ORDERED: LORA-999 PO (16:57)
[2023-02-05 17:02] VITALS: TEMP 98.8
[2023-02-05 17:35] LABS: COVID AG,FIA SOURCE NASAL SWAB
[2023-02-05 17:37] LABS: BASOPHILS % (AUTO) 0.4 % (0.0-2.0); EOSINOPHILS % (AUTO) 0.4 % (1.0-6.0); HEMATOCRIT 38.1 % (36-46); HEMOGLOBIN 13.2 g/dL (12.0-16.0); LYMPHOCYTES # (AUTO) 1.2 K/uL (1.0-4.8); LYMPHOCYTES % (AUTO) 16.4 % (22.0-44.0); MEAN CORPUSCULAR HEMOGLOBIN 33.2 pg (26.0-34.0); MEAN CORPUSCULAR HGB CONC 34.7 G/dL (31.0-37.0); MEAN CORPUSCULAR VOLUME 96 fL (80-100); MONOCYTES # (AUTO) 0.5 K/uL (0.1-1.0); MONOCYTES % (AUTO) 6.8 % (2.0-9.0); NEUTROPHILS # (AUTO) 5.8 K/uL (1.8-7.7); PLATELET COUNT (AUTO) 153 K/uL (150-450); RED BLOOD CELL COUNT(AUTO) 3.98 MIL/uL (4.00-5.20); RED CELL DISTRIBUTION WIDTH 14.5 % (11.5-14.5); WHITE BLOOD COUNT (AUTO) 7.6 K/uL (4.5-11.0)
[2023-02-05 17:54] LABS: SARS-COV2 (COVID) ANTIGEN,FIA Negative (Negative)
[2023-02-05 17:58] LABS: ALANINE AMINOTRANSFERASE 29 U/L (12-78); ALBUMIN 3.5 g/dL (3.4-5.0); ALKALINE PHOSPHATASE 128 U/L (46-116); ANION GAP 14 mmol/L (8-16); ASPARTATE AMINOTRANSFERASE 24 U/L (15-37); BILIRUBIN,TOTAL 0.2 mg/dL (0.1-1.0); CALCIUM, TOTAL 9.1 mg/dL (8.8-10.5); CARBON DIOXIDE 29 mmol/L (22-29); CHLORIDE 103 mmol/L (98-107); CREATININE 0.54 mg/dL (0.60-1.30); GLOMERULAR FILTR. RATE CALC > 60 mL/min (>60); GLUCOSE,RANDOM 105 mg/dL (70-110); LIPASE 37 U/L (16-77); SODIUM SERUM 146 mmol/L (136-145); TOTAL PROTEIN, SERUM 7.3 g/dL (6.4-8.2); UREA NITROGEN, BLOOD 16 mg/dL (7-18)
[2023-02-05 18:00] LABS: TROPONIN I-HIGH SENSITIVITY 7 ng/L (<51)
[2023-02-05 18:01] LABS: ALCOHOL, BLOOD (SERUM) 232 mg/dL (0-10); POTASSIUM 2.8 mmol/L (3.5-5.1)
[2023-02-05 18:01] LABS: GLUCOMETER DEV NAME(LOC) ER.6; GLUCOSE,POINT OF CARE 103 MG/DL (70-110)
[2023-02-05 18:07] LABS: LACTIC ACID 3.5 mmol/L (0.4-2.0)
[2023-02-05] MEDS ORDERED: POTASSIUM CHLORIDE 10% 40 MEQ/30 ML LIQUID UDCUP PO ONE (18:15)
[2023-02-05 18:21] VITALS: BP 128/77; PULSE 84; RESP 14
== END 2023-02-05 21:26 | disposition home or self-care (01) ==
LOC: EMS 16:43
DX: F10.229 Alcohol dependence with intoxication, unspecified (principal); F32.9 Major depressive disorder, single episode, unspecified; F17.210 Nicotine dependence, cigarettes, uncomplicated; Z20.822 Contact with and (suspected) exposure to COVID-19; Y90.9 Presence of alcohol in blood, level not specified
CPT/HCPCS: 99285; 71045; 87426; 80053; 82962; 83605; 83690; 84484; 85025; 36415; 93005; G0480

== ENCOUNTER 2023-02-18 12:48 | Inpatient (IN) | payer MEDICAID ==
[~2023-02-18] VITALS: Ht 152.4 cm; Wt 70.6 kg
[~2023-02-18 12:48] MED LIST changes: +ASPI-1450 PO; +LORA-999 PO
[2023-02-18] MEDS ORDERED: LORazepam 2 MG TABLET PO PRN (14:45)
[2023-02-18] MEDS ORDERED: QUEtiapine FUMARATE 100 MG TABLET PO PRN (14:45)
[2023-02-18] MEDS ORDERED: ZOLPIDEM TARTRATE 10 MG TABLET PO PRN (14:45)
[2023-02-18 16:37] VITALS: BP 157/96; PULSE 75; RESP 18; TEMP 98; O2SAT 99
[2023-02-18 17:00] VITALS: BP 157/96; PULSE 75; RESP 18; TEMP 98; O2SAT 99
[2023-02-18] MEDS: CEPHALEXIN MONOHYDRATE 500 MG CAPSULE PO SCH (19:01)
[2023-02-18 20:33] VITALS: BP 143/93; PULSE 88; RESP 18; TEMP 97.8; O2SAT 97
[2023-02-18] MEDS ORDERED: MAGNESIUM HYDROXIDE SUSPENSION 30 ML UDCUP PO PRN (21:30)
[2023-02-18] MEDS ORDERED: ALBUTEROL SULFATE HFA 90 MCG/PUFF 8 GM INHALER IH PRN (21:30)
[2023-02-18] MEDS ORDERED: IBUPROFEN 400 MG TABLET PO PRN (21:30)
[2023-02-18] MEDS ORDERED: DOCUSATE SODIUM 100 MG CAPSULE PO PRN (21:30)
[2023-02-18] MEDS ORDERED: ONDANSETRON HCL 4 MG TABLET PO PRN (21:30)
[2023-02-18] MEDS ORDERED: CloNIDine HCL 0.1 MG TABLET PO PRN (21:30)
[2023-02-18] MEDS ORDERED: LOPERAMIDE HCL 2 MG CAPSULE PO PRN (21:30)
[2023-02-18] MEDS ORDERED: NICOTINE 14 MG/24 HOUR PATCH TD PRN (21:30)
[2023-02-18] MEDS ORDERED: ACETAMINOPHEN 325 MG TABLET PO PRN (21:30)
[2023-02-18] MEDS ORDERED: GuaiFENesin/D-METHORPHAN [SUGAR-FREE] 200-20MG/10 ML SYRUP UDCUP PO PRN (21:30)
[2023-02-18] MEDS ORDERED: MAG HYDROX/ALUMINUM HYD/SIMETH ES 30 ML SUSPENSION UDCUP PO PRN (21:30)
[2023-02-18] MEDS ORDERED: PETROLATUM,WHITE 28 GM JELLY TP PRN (21:30)
[2023-02-18 22:06] VITALS: BP 143/93; PULSE 88; RESP 18; TEMP 97.8; O2SAT 97
[2023-02-18 22:40] VITALS: BP 140/89; PULSE 79; RESP 20; TEMP 97.2; O2SAT 98
[2023-02-18 23:46] VITALS: RESP 18
[2023-02-19] MEDS ORDERED: ChlordiazePOXIDE HCL 25 MG CAPSULE PO PRN (07:00)
[2023-02-19] MEDS: ChlordiazePOXIDE HCL 25 MG CAPSULE PO SCH ×3 (08:42→16:09)
[2023-02-19] MEDS: CEPHALEXIN MONOHYDRATE 500 MG CAPSULE PO SCH ×3 (08:42→16:09)
[2023-02-19] MEDS ORDERED: PANTOPRAZOLE SODIUM 40 MG DR TABLET PO SCH (09:00)
[2023-02-19] MEDS ORDERED: NICOTINE 21 MG/24 HOUR PATCH TD SCH (09:00)
[2023-02-19 09:25] LABS: BASOPHILS % (AUTO) 0.5 % (0.0-2.0); HEMATOCRIT 38.8 % (36-46); HEMOGLOBIN 13.5 g/dL (12.0-16.0); LYMPHOCYTES # (AUTO) 0.6 K/uL (1.0-4.8); LYMPHOCYTES % (AUTO) 16.3 % (22.0-44.0); MEAN CORPUSCULAR HEMOGLOBIN 33.9 pg (26.0-34.0); MEAN CORPUSCULAR HGB CONC 34.8 G/dL (31.0-37.0); MEAN CORPUSCULAR VOLUME 98 fL (80-100); MONOCYTES # (AUTO) 0.6 K/uL (0.1-1.0); MONOCYTES % (AUTO) 16.7 % (2.0-9.0); NEUTROPHILS # (AUTO) 2.3 K/uL (1.8-7.7); NEUTROPHILS % (AUTO) 64.5 % (40.0-70.0); PLATELET COUNT (AUTO) 110 K/uL (150-450); RED BLOOD CELL COUNT(AUTO) 3.98 MIL/uL (4.00-5.20); RED CELL DISTRIBUTION WIDTH 15.1 % (11.5-14.5); WHITE BLOOD COUNT (AUTO) 3.5 K/uL (4.5-11.0)
[2023-02-19 09:31] LABS: HEMOGLOBIN A1C 5.2 % (3.8-5.6)
[2023-02-19 09:47] LABS: ALANINE AMINOTRANSFERASE 37 U/L (12-78); ALBUMIN 3.6 g/dL (3.4-5.0); ALKALINE PHOSPHATASE 93 U/L (46-116); ANION GAP 12 mmol/L (8-16); ASPARTATE AMINOTRANSFERASE 48 U/L (15-37); BILIRUBIN,TOTAL 0.5 mg/dL (0.1-1.0); CARBON DIOXIDE 23 mmol/L (22-29); CHLORIDE 103 mmol/L (98-107); CHOL/HDL RATIO 3.7 (3.9-5.7); CHOLESTEROL 362 mg/dL (131-200); GLOMERULAR FILTR. RATE CALC > 60 mL/min (>60); GLUCOSE,RANDOM 127 mg/dL (70-110); HDL CHOLESTEROL 98 mg/dL (40-60); LDL CHOL (CALC.) 217 mg/dL (0-130); POTASSIUM 3.8 mmol/L (3.5-5.1); SODIUM SERUM 138 mmol/L (136-145); THYROID STIMULATING HORMONE 4.68 uIU/mL (0.36-3.74); TOTAL PROTEIN, SERUM 7.2 g/dL (6.4-8.2); TRIGLYCERIDES 237 mg/dL (15-150); UREA NITROGEN, BLOOD 13 mg/dL (7-18)
[2023-02-19 10:42] VITALS: BP 151/94; PULSE 82; RESP 18; TEMP 97.7; O2SAT 97
[2023-02-19] MEDS ORDERED: CEPH-558 PO (12:57)
[2023-02-19] MEDS ORDERED: CHLO5CAP4 PO (12:57)
[2023-02-20] MEDS ORDERED: ATORVASTATIN CALCIUM 40 MG TABLET PO SCH (09:00)
[2023-02-20] MEDS ORDERED: FOLIC ACID 1 MG TABLET PO SCH (09:00)
[2023-02-20] MEDS ORDERED: AmLODIPine BESYLATE 10 MG TABLET PO SCH (09:00)
[2023-02-20] MEDS ORDERED: ASPIRIN 81 MG CHEWABLE TABLET PO SCH (09:00)
[2023-02-20] MEDS ORDERED: METOPROLOL SUCCINATE 25 MG ER TABLET PO SCH (09:00)
[2023-02-21] MEDS ORDERED: ChlordiazePOXIDE HCL 10 MG CAPSULE PO PRN (07:00)
[2023-02-21] MEDS ORDERED: ChlordiazePOXIDE HCL 10 MG CAPSULE PO SCH (09:00)
[2023-02-22] MEDS ORDERED: ChlordiazePOXIDE HCL 10 MG CAPSULE PO PRN (07:00)
== END 2023-02-19 19:00 | disposition home or self-care (01) | DRG 751 ==
LOC: 3EI 16:30
PROVIDERS: ADMIT Psychiatry & Neurology Psychiatry; ATTEND Psychiatry & Neurology Psychiatry
DX: F33.1 Major depressive disorder, recurrent, moderate (principal); F10.90 Alcohol use, unspecified, uncomplicated; I10 Essential (primary) hypertension; Z79.82 Long term (current) use of aspirin; Z79.899 Other long term (current) drug therapy
CPT/HCPCS: 80053; 80061; 83036; 84443; 85025; 87081

== ENCOUNTER 2023-02-26 18:15 | Inpatient (IN) | payer MEDICAID ==
[~2023-02-26] VITALS: Ht 162.6 cm; Wt 72.5 kg
[~2023-02-26 18:15] MED LIST changes: +CEPH-558 PO; +CHLO5CAP4 PO; -LORA-999 PO; -MULT-1366 PO; -SERT-162 PO
[2023-02-26 19:18] LABS: BASOPHILS % (AUTO) 1.8 % (0.0-2.0); EOSINOPHILS % (AUTO) 0.7 % (1.0-6.0); HEMATOCRIT 43.1 % (36-46); HEMOGLOBIN 14.8 g/dL (12.0-16.0); LYMPHOCYTES # (AUTO) 1.2 K/uL (1.0-4.8); LYMPHOCYTES % (AUTO) 36.3 % (22.0-44.0); MEAN CORPUSCULAR HEMOGLOBIN 33.4 pg (26.0-34.0); MEAN CORPUSCULAR HGB CONC 34.3 G/dL (31.0-37.0); MEAN CORPUSCULAR VOLUME 97 fL (80-100); MONOCYTES # (AUTO) 0.6 K/uL (0.1-1.0); MONOCYTES % (AUTO) 19.4 % (2.0-9.0); NEUTROPHILS # (AUTO) 1.3 K/uL (1.8-7.7); NEUTROPHILS % (AUTO) 41.8 % (40.0-70.0); PLATELET COUNT (AUTO) 174 K/uL (150-450); RED BLOOD CELL COUNT(AUTO) 4.43 MIL/uL (4.00-5.20); RED CELL DISTRIBUTION WIDTH 15.3 % (11.5-14.5); WHITE BLOOD COUNT (AUTO) 3.2 K/uL (4.5-11.0)
[2023-02-26 19:28] LABS: ANION GAP 15 mmol/L (8-16); CALCIUM, TOTAL 8.6 mg/dL (8.8-10.5); CARBON DIOXIDE 22 mmol/L (22-29); CHLORIDE 105 mmol/L (98-107); CREATININE 0.58 mg/dL (0.60-1.30); GLOMERULAR FILTR. RATE CALC > 60 mL/min (>60); GLUCOSE,RANDOM 85 mg/dL (70-110); POTASSIUM 4.1 mmol/L (3.5-5.1); SODIUM SERUM 142 mmol/L (136-145); UREA NITROGEN, BLOOD 15 mg/dL (7-18)
[2023-02-26 19:35] LABS: ALANINE AMINOTRANSFERASE 57 U/L (12-78); ALBUMIN 3.5 g/dL (3.4-5.0); ALKALINE PHOSPHATASE 98 U/L (46-116); ASPARTATE AMINOTRANSFERASE 94 U/L (15-37); TOTAL PROTEIN, SERUM 7.5 g/dL (6.4-8.2)
[2023-02-26 19:36] LABS: ALCOHOL, BLOOD (SERUM) 285 mg/dL (0-10)
[2023-02-26 19:37] LABS: BILIRUBIN,TOTAL 0.1 mg/dL (0.1-1.0)
[2023-02-26 22:04] LABS: COVID AG,FIA SOURCE NASAL SWAB
[2023-02-26] MEDS ORDERED: LORazepam 2 MG TABLET PO PRN (22:15)
[2023-02-26] MEDS: HALOPERIDOL 5 MG TABLET PO PRN (22:36)
[2023-02-26 22:46] LABS: SARS-COV2 (COVID) ANTIGEN,FIA Positive (Negative)
[2023-02-27] MEDS: ZOLPIDEM TARTRATE 10 MG TABLET PO PRN ×3 (03:15→20:45)
[2023-02-27 03:51] VITALS: BP 144/90; PULSE 97; RESP 20; TEMP 98.8
[2023-02-27] MEDS ORDERED: PNEUMOCOCCAL VACCINE POLYVALENT 0.5 ML SYRINGE [PPSV23] IM. ONE (04:30)
[2023-02-27] MEDS ORDERED: INFLUENZA VIRUS VACCINE QVS 2023-24 (6MO+)/PF 60 MCG/0.5 ML SYRINGE IM. ONE (04:30)
[2023-02-27] MEDS ORDERED: CloNIDine HCL 0.1 MG TABLET PO PRN (07:00)
[2023-02-27] MEDS ORDERED: ALBUTEROL SULFATE HFA 90 MCG/PUFF 8 GM INHALER IH PRN (07:00)
[2023-02-27] MEDS ORDERED: PETROLATUM,WHITE 28 GM JELLY TP PRN (07:00)
[2023-02-27] MEDS ORDERED: MAGNESIUM HYDROXIDE SUSPENSION 30 ML UDCUP PO PRN (07:00)
[2023-02-27] MEDS ORDERED: LOPERAMIDE HCL 2 MG CAPSULE PO PRN (07:00)
[2023-02-27] MEDS ORDERED: DOCUSATE SODIUM 100 MG CAPSULE PO PRN (07:00)
[2023-02-27] MEDS ORDERED: ONDANSETRON HCL 4 MG TABLET PO PRN (07:00)
[2023-02-27] MEDS ORDERED: ACETAMINOPHEN 325 MG TABLET PO PRN (07:00)
[2023-02-27] MEDS ORDERED: MAG HYDROX/ALUMINUM HYD/SIMETH ES 30 ML SUSPENSION UDCUP PO PRN (07:00)
[2023-02-27 07:47] VITALS: BP 148/92; PULSE 122; RESP 19; TEMP 99.6
[2023-02-27 09:08] VITALS: BP 161/98; PULSE 111; RESP 20; TEMP 98.6
[2023-02-27] MEDS: METOPROLOL SUCCINATE 25 MG ER TABLET PO SCH (09:49)
[2023-02-27] MEDS: CEPHALEXIN MONOHYDRATE 500 MG CAPSULE PO SCH ×3 (09:49→16:28)
[2023-02-27] MEDS: FOLIC ACID 1 MG TABLET PO SCH (09:49)
[2023-02-27] MEDS: AmLODIPine BESYLATE 10 MG TABLET PO SCH (09:49)
[2023-02-27] MEDS: ASPIRIN 81 MG CHEWABLE TABLET PO SCH (09:49)
[2023-02-27] MEDS: ATORVASTATIN CALCIUM 40 MG TABLET PO SCH (09:49)
[2023-02-27] MEDS: NICOTINE 14 MG/24 HOUR PATCH TD PRN (10:35)
[2023-02-27 14:25] VITALS: BP 147/85; PULSE 100; RESP 18; TEMP 98.6
[2023-02-27 16:50] VITALS: BP 156/84; PULSE 107; RESP 18; TEMP 98.7
[2023-02-27] MEDS: IBUPROFEN 400 MG TABLET PO PRN (16:59)
[2023-02-27 20:34] VITALS: BP 131/73; PULSE 103; RESP 18; TEMP 99
[2023-02-27] MEDS: HALOPERIDOL 5 MG TABLET PO PRN (21:45)
[2023-02-28 00:08] VITALS: BP 130/72; PULSE 95; RESP 17; TEMP 98.1
[2023-02-28] MEDS ORDERED: BENZOCAINE/MENTHOL LOZENGE PO PRN (00:15)
[2023-02-28] MEDS: GuaiFENesin/D-METHORPHAN [SUGAR-FREE] 200-20MG/10 ML SYRUP UDCUP PO PRN (00:35)
[2023-02-28 08:19] LABS: CHOL/HDL RATIO 3.3 (3.9-5.7)
[2023-02-28 08:25] VITALS: BP 147/93; PULSE 107; RESP 18; TEMP 97.9
[2023-02-28 08:27] LABS: HEMOGLOBIN A1C 5.2 % (3.8-5.6)
[2023-02-28 08:47] LABS: THYROID STIMULATING HORMONE 6.35 uIU/mL (0.36-3.74)
[2023-02-28] MEDS: LORazepam 0.5 MG TABLET PO SCH ×3 (09:28→16:52)
[2023-02-28] MEDS: CEPHALEXIN MONOHYDRATE 500 MG CAPSULE PO SCH ×3 (09:28→16:52)
[2023-02-28] MEDS: SERTRALINE HCL 50 MG TABLET PO SCH (09:28)
[2023-02-28] MEDS: METOPROLOL SUCCINATE 25 MG ER TABLET PO SCH (09:28)
[2023-02-28] MEDS: FOLIC ACID 1 MG TABLET PO SCH (09:28)
[2023-02-28] MEDS: ATORVASTATIN CALCIUM 40 MG TABLET PO SCH (09:28)
[2023-02-28] MEDS: ASPIRIN 81 MG CHEWABLE TABLET PO SCH (09:29)
[2023-02-28] MEDS: AmLODIPine BESYLATE 10 MG TABLET PO SCH (09:29)
[2023-02-28] MEDS: NICOTINE 14 MG/24 HOUR PATCH TD PRN (09:30)
[2023-02-28 12:21] VITALS: BP 144/67; PULSE 100; RESP 18; TEMP 98.4
[2023-02-28 16:33] LABS: APPEARANCE,URINE CLEAR (CLEAR); BILIRUBIN,URINE NEGATIVE (NEGATIVE); COLOR,URINE COLORLESS (YELLOW); GLUCOSE, URINE (UA) NEGATIVE (NEGATIVE); KETONES,URINE NEGATIVE (NEGATIVE); LEUKOCYTE ESTERASE ,URINE NEGATIVE (NEGATIVE); NITRATE,URINE NEGATIVE (NEGATIVE); OCCULT BLOOD,URINE NEGATIVE (NEGATIVE); PROTEIN,URINE NEGATIVE (NEGATIVE); SPECIFIC GRAVITIY, URINE 1.008 (1.003-1.030); UROBILINOGEN,URINE <=1.0 mg/dL (<=1.0)
[2023-02-28 16:40] LABS: AMPHET/METH SCREEN,URINE NEGATIVE (NEGATIVE); BARBITURATE SCREEN, URINE NEGATIVE (NEGATIVE); BENZODIAZEPINES SCREEN,URINE POSITIVE (NEGATIVE); CANNABINOID SCREEN,URINE NEGATIVE (NEGATIVE); COCAINE SCREEN,URINE NEGATIVE (NEGATIVE); METHADONE SCREEN, URINE NEGATIVE (NEGATIVE); OPIATE SCREEN,URINE NEGATIVE (NEGATIVE); PHENCYCLIDINE SCREEN,URINE NEGATIVE (NEGATIVE)
[2023-02-28 16:41] LABS: ALCOHOL, URINE DRUG SCREEN NEGATIVE (NEGATIVE)
[2023-02-28 18:46] VITALS: BP 135/79; PULSE 103; RESP 18; TEMP 98.7
[2023-02-28] MEDS: IBUPROFEN 400 MG TABLET PO PRN (18:59)
[2023-02-28 20:00] VITALS: RESP 18
[2023-02-28 20:22] VITALS: BP 141/88; PULSE 101; RESP 19; TEMP 98.3
[2023-02-28] MEDS: ZOLPIDEM TARTRATE 10 MG TABLET PO PRN (21:23)
[2023-03-01] VITALS (7 sets, daily range): BP systolic 134–140; BP diastolic 76–89; PULSE 89–100; RESP 18–20; TEMP 97.9–98.5
[2023-03-01 02:42] LABS: COVID AG,FIA SOURCE NASAL SWAB
[2023-03-01 03:18] LABS: SARS-COV2 (COVID) ANTIGEN,FIA Positive (Negative)
[2023-03-01] MEDS: IBUPROFEN 400 MG TABLET PO PRN ×2 (03:40→17:28)
[2023-03-01] MEDS: FOLIC ACID 1 MG TABLET PO SCH (09:25)
[2023-03-01] MEDS: METOPROLOL SUCCINATE 25 MG ER TABLET PO SCH (09:25)
[2023-03-01] MEDS: CEPHALEXIN MONOHYDRATE 500 MG CAPSULE PO SCH ×3 (09:25→16:23)
[2023-03-01] MEDS: SERTRALINE HCL 50 MG TABLET PO SCH (09:25)
[2023-03-01] MEDS: AmLODIPine BESYLATE 10 MG TABLET PO SCH (09:26)
[2023-03-01] MEDS: ASPIRIN 81 MG CHEWABLE TABLET PO SCH (09:26)
[2023-03-01] MEDS: LORazepam 0.5 MG TABLET PO SCH ×3 (09:26→16:23)
[2023-03-01] MEDS: ATORVASTATIN CALCIUM 40 MG TABLET PO SCH (09:26)
[2023-03-01] MEDS: NICOTINE 14 MG/24 HOUR PATCH TD PRN (10:52)
[2023-03-01] MEDS: GuaiFENesin/D-METHORPHAN [SUGAR-FREE] 200-20MG/10 ML SYRUP UDCUP PO PRN (17:29)
[2023-03-01] MEDS: ZOLPIDEM TARTRATE 10 MG TABLET PO PRN (21:10)
[2023-03-02 00:22] VITALS: BP 139/87; PULSE 92; RESP 19; TEMP 97.7
[2023-03-02 04:11] VITALS: RESP 18; TEMP 98
[2023-03-02 08:00] VITALS: BP 128/83; PULSE 88; RESP 18; TEMP 97.8
[2023-03-02] MEDS: CEPHALEXIN MONOHYDRATE 500 MG CAPSULE PO SCH ×3 (09:34→16:30)
[2023-03-02] MEDS: AmLODIPine BESYLATE 10 MG TABLET PO SCH (09:35)
[2023-03-02] MEDS: METOPROLOL SUCCINATE 25 MG ER TABLET PO SCH (09:35)
[2023-03-02] MEDS: ATORVASTATIN CALCIUM 40 MG TABLET PO SCH (09:35)
[2023-03-02] MEDS: SERTRALINE HCL 50 MG TABLET PO SCH (09:35)
[2023-03-02] MEDS: FOLIC ACID 1 MG TABLET PO SCH (09:35)
[2023-03-02] MEDS: ASPIRIN 81 MG CHEWABLE TABLET PO SCH (09:35)
[2023-03-02] MEDS: LORazepam 0.5 MG TABLET PO SCH ×3 (09:35→16:30)
[2023-03-02] MEDS: NICOTINE 14 MG/24 HOUR PATCH TD PRN (12:06)
[2023-03-02] MEDS: IBUPROFEN 400 MG TABLET PO PRN (16:30)
[2023-03-02 16:33] VITALS: BP 143/79; PULSE 90; RESP 18; TEMP 98
[2023-03-02 17:30] VITALS: RESP 16
[2023-03-02 20:47] VITALS: BP 140/91; PULSE 86; RESP 18; TEMP 97.9
[2023-03-02] MEDS: ZOLPIDEM TARTRATE 10 MG TABLET PO PRN (21:37)
[2023-03-03 08:19] VITALS: BP 116/75; PULSE 92; RESP 18; TEMP 97.9
[2023-03-03] MEDS: LORazepam 0.5 MG TABLET PO SCH ×3 (09:52→17:25)
[2023-03-03] MEDS: METOPROLOL SUCCINATE 25 MG ER TABLET PO SCH (09:53)
[2023-03-03] MEDS: SERTRALINE HCL 50 MG TABLET PO SCH (09:53)
[2023-03-03] MEDS: ASPIRIN 81 MG CHEWABLE TABLET PO SCH (09:54)
[2023-03-03] MEDS: FOLIC ACID 1 MG TABLET PO SCH (09:54)
[2023-03-03] MEDS: ATORVASTATIN CALCIUM 40 MG TABLET PO SCH (09:54)
[2023-03-03] MEDS: CEPHALEXIN MONOHYDRATE 500 MG CAPSULE PO SCH ×3 (09:54→17:24)
[2023-03-03] MEDS: AmLODIPine BESYLATE 10 MG TABLET PO SCH (09:54)
[2023-03-03] MEDS: NICOTINE 14 MG/24 HOUR PATCH TD PRN (12:06)
[2023-03-03 20:09] VITALS: BP 131/81; PULSE 97; RESP 19; TEMP 98
[2023-03-03] MEDS: GuaiFENesin/D-METHORPHAN [SUGAR-FREE] 200-20MG/10 ML SYRUP UDCUP PO PRN (21:09)
[2023-03-03] MEDS: ZOLPIDEM TARTRATE 10 MG TABLET PO PRN (21:09)
[2023-03-04 07:18] LABS: COVID AG,FIA SOURCE NASAL SWAB
[2023-03-04 07:58] LABS: SARS-COV2 (COVID) ANTIGEN,FIA Negative (Negative)
[2023-03-04 08:35] VITALS: BP 119/76; PULSE 96; RESP 18; TEMP 97.9
[2023-03-04] MEDS: METOPROLOL SUCCINATE 25 MG ER TABLET PO SCH (09:09)
[2023-03-04] MEDS: FOLIC ACID 1 MG TABLET PO SCH (09:09)
[2023-03-04] MEDS: SERTRALINE HCL 50 MG TABLET PO SCH (09:09)
[2023-03-04] MEDS: ATORVASTATIN CALCIUM 40 MG TABLET PO SCH (09:09)
[2023-03-04] MEDS: LORazepam 0.5 MG TABLET PO SCH ×3 (09:09→16:31)
[2023-03-04] MEDS: ASPIRIN 81 MG CHEWABLE TABLET PO SCH (09:09)
[2023-03-04] MEDS: AmLODIPine BESYLATE 10 MG TABLET PO SCH (09:09)
[2023-03-04] MEDS: CEPHALEXIN MONOHYDRATE 500 MG CAPSULE PO SCH ×3 (09:10→16:32)
[2023-03-04] MEDS: IBUPROFEN 400 MG TABLET PO PRN (16:32)
[2023-03-04] MEDS: ZOLPIDEM TARTRATE 10 MG TABLET PO PRN (21:05)
[2023-03-04 22:42] VITALS: BP 94/64; PULSE 86; RESP 18; TEMP 96.8
[2023-03-05] MEDS: FOLIC ACID 1 MG TABLET PO SCH (09:16)
[2023-03-05] MEDS: METOPROLOL SUCCINATE 25 MG ER TABLET PO SCH (09:16)
[2023-03-05] MEDS: SERTRALINE HCL 100 MG TABLET PO SCH (09:16)
[2023-03-05] MEDS: ATORVASTATIN CALCIUM 40 MG TABLET PO SCH (09:16)
[2023-03-05] MEDS: CEPHALEXIN MONOHYDRATE 500 MG CAPSULE PO SCH ×3 (09:16→17:25)
[2023-03-05] MEDS: LORazepam 0.5 MG TABLET PO SCH ×3 (09:17→17:25)
[2023-03-05] MEDS: ASPIRIN 81 MG CHEWABLE TABLET PO SCH (09:17)
[2023-03-05] MEDS: AmLODIPine BESYLATE 10 MG TABLET PO SCH (09:18)
[2023-03-05 09:41] VITALS: BP 123/69; PULSE 92; RESP 18; TEMP 97.8
[2023-03-05 20:06] VITALS: BP 124/78; PULSE 84; RESP 18; TEMP 97.1
[2023-03-05] MEDS: ZOLPIDEM TARTRATE 10 MG TABLET PO PRN (21:05)
[2023-03-05] MEDS: IBUPROFEN 400 MG TABLET PO PRN (21:05)
[2023-03-06 06:24] LABS: COVID AG,FIA SOURCE NASAL SWAB
[2023-03-06 06:46] LABS: SARS-COV2 (COVID) ANTIGEN,FIA Negative (Negative)
[2023-03-06] MEDS: CEPHALEXIN MONOHYDRATE 500 MG CAPSULE PO SCH ×3 (08:30→16:19)
[2023-03-06] MEDS: ATORVASTATIN CALCIUM 40 MG TABLET PO SCH (08:30)
[2023-03-06] MEDS: LORazepam 0.5 MG TABLET PO SCH ×3 (08:30→16:19)
[2023-03-06] MEDS: METOPROLOL SUCCINATE 25 MG ER TABLET PO SCH (08:30)
[2023-03-06] MEDS: ASPIRIN 81 MG CHEWABLE TABLET PO SCH (08:31)
[2023-03-06] MEDS: SERTRALINE HCL 100 MG TABLET PO SCH (08:31)
[2023-03-06] MEDS: FOLIC ACID 1 MG TABLET PO SCH (08:31)
[2023-03-06] MEDS: AmLODIPine BESYLATE 10 MG TABLET PO SCH (08:33)
[2023-03-06] MEDS: NICOTINE 14 MG/24 HOUR PATCH TD PRN (08:34)
[2023-03-06 08:47] VITALS: BP 127/70; PULSE 91; RESP 16; TEMP 98.2
[2023-03-06] MEDS: ZOLPIDEM TARTRATE 10 MG TABLET PO PRN (21:10)
[2023-03-06 21:35] VITALS: BP 101/64; PULSE 84; RESP 18; TEMP 98.8
[2023-03-07] MEDS: CEPHALEXIN MONOHYDRATE 500 MG CAPSULE PO SCH ×3 (09:22→17:21)
[2023-03-07] MEDS: ATORVASTATIN CALCIUM 40 MG TABLET PO SCH (09:23)
[2023-03-07] MEDS: SERTRALINE HCL 100 MG TABLET PO SCH (09:23)
[2023-03-07] MEDS: FOLIC ACID 1 MG TABLET PO SCH (09:23)
[2023-03-07] MEDS: METOPROLOL SUCCINATE 25 MG ER TABLET PO SCH (09:23)
[2023-03-07] MEDS: AmLODIPine BESYLATE 10 MG TABLET PO SCH (09:24)
[2023-03-07] MEDS: LORazepam 0.5 MG TABLET PO SCH ×3 (09:24→17:19)
[2023-03-07] MEDS: ASPIRIN 81 MG CHEWABLE TABLET PO SCH (09:25)
[2023-03-07 09:35] VITALS: PULSE 89; RESP 18; TEMP 98.2
[2023-03-07] MEDS: NICOTINE 14 MG/24 HOUR PATCH TD PRN (14:09)
[2023-03-07 20:48] VITALS: BP 118/70; PULSE 75; RESP 17; TEMP 98.1
[2023-03-07] MEDS: ZOLPIDEM TARTRATE 10 MG TABLET PO PRN (21:42)
[2023-03-08 04:55] VITALS: BP 121/64; RESP 18
[2023-03-08] MEDS: IBUPROFEN 400 MG TABLET PO PRN (04:55)
[2023-03-08 05:55] VITALS: RESP 18
[2023-03-08] MEDS: FOLIC ACID 1 MG TABLET PO SCH (08:34)
[2023-03-08] MEDS: METOPROLOL SUCCINATE 25 MG ER TABLET PO SCH (08:34)
[2023-03-08] MEDS: SERTRALINE HCL 100 MG TABLET PO SCH (08:34)
[2023-03-08] MEDS: ATORVASTATIN CALCIUM 40 MG TABLET PO SCH (08:34)
[2023-03-08] MEDS: CEPHALEXIN MONOHYDRATE 500 MG CAPSULE PO SCH ×3 (08:35→18:22)
[2023-03-08] MEDS: AmLODIPine BESYLATE 10 MG TABLET PO SCH (08:36)
[2023-03-08] MEDS: ASPIRIN 81 MG CHEWABLE TABLET PO SCH (08:36)
[2023-03-08 08:58] VITALS: BP 121/81; PULSE 75; RESP 18; TEMP 97.9
[2023-03-08] MEDS: NICOTINE 14 MG/24 HOUR PATCH TD PRN (09:00)
[2023-03-08 20:57] VITALS: BP 124/84; PULSE 87; RESP 18; TEMP 98
[2023-03-08] MEDS: ZOLPIDEM TARTRATE 10 MG TABLET PO PRN (21:42)
[2023-03-09 08:00] VITALS: BP 123/70; PULSE 92; RESP 18; TEMP 97
[2023-03-09] MEDS: CEPHALEXIN MONOHYDRATE 500 MG CAPSULE PO SCH ×3 (08:41→16:12)
[2023-03-09] MEDS: METOPROLOL SUCCINATE 25 MG ER TABLET PO SCH (08:41)
[2023-03-09] MEDS: SERTRALINE HCL 100 MG TABLET PO SCH (08:41)
[2023-03-09] MEDS: FOLIC ACID 1 MG TABLET PO SCH (08:41)
[2023-03-09] MEDS: ATORVASTATIN CALCIUM 40 MG TABLET PO SCH (08:41)
[2023-03-09] MEDS: AmLODIPine BESYLATE 10 MG TABLET PO SCH (08:42)
[2023-03-09] MEDS: ASPIRIN 81 MG CHEWABLE TABLET PO SCH (08:42)
[2023-03-09 21:01] VITALS: BP 118/67; PULSE 75; RESP 18; TEMP 97.5
[2023-03-09] MEDS: ZOLPIDEM TARTRATE 10 MG TABLET PO PRN (21:20)
[2023-03-10 09:00] VITALS: BP 101/81; PULSE 85; RESP 18; TEMP 97.2
[2023-03-10] MEDS: ASPIRIN 81 MG CHEWABLE TABLET PO SCH (09:29)
[2023-03-10] MEDS: AmLODIPine BESYLATE 10 MG TABLET PO SCH (09:30)
[2023-03-10] MEDS: ATORVASTATIN CALCIUM 40 MG TABLET PO SCH (09:30)
[2023-03-10] MEDS: METOPROLOL SUCCINATE 25 MG ER TABLET PO SCH (09:30)
[2023-03-10] MEDS: SERTRALINE HCL 100 MG TABLET PO SCH (09:30)
[2023-03-10] MEDS: FOLIC ACID 1 MG TABLET PO SCH (09:31)
[2023-03-10 20:45] VITALS: BP 102/69; PULSE 75; RESP 18; TEMP 97.9
[2023-03-10] MEDS: HALOPERIDOL 5 MG TABLET PO PRN (21:21)
[2023-03-10] MEDS: ZOLPIDEM TARTRATE 10 MG TABLET PO PRN (21:21)
[2023-03-11 08:30] VITALS: BP 121/71; PULSE 78; RESP 16; TEMP 97.5
[2023-03-11] MEDS: METOPROLOL SUCCINATE 25 MG ER TABLET PO SCH (08:41)
[2023-03-11] MEDS: SERTRALINE HCL 100 MG TABLET PO SCH (08:41)
[2023-03-11] MEDS: ATORVASTATIN CALCIUM 40 MG TABLET PO SCH (08:41)
[2023-03-11] MEDS: FOLIC ACID 1 MG TABLET PO SCH (08:41)
[2023-03-11] MEDS: AmLODIPine BESYLATE 10 MG TABLET PO SCH (08:42)
[2023-03-11] MEDS: ASPIRIN 81 MG CHEWABLE TABLET PO SCH (08:42)
[2023-03-11 20:31] VITALS: BP 122/75; PULSE 74; RESP 18; TEMP 97.3
[2023-03-12 08:00] VITALS: BP 138/75; PULSE 81; RESP 20; TEMP 97.7
[2023-03-12] MEDS: AmLODIPine BESYLATE 10 MG TABLET PO SCH (09:03)
[2023-03-12] MEDS: ASPIRIN 81 MG CHEWABLE TABLET PO SCH (09:03)
[2023-03-12] MEDS: SERTRALINE HCL 100 MG TABLET PO SCH (09:06)
[2023-03-12] MEDS: ATORVASTATIN CALCIUM 40 MG TABLET PO SCH (09:06)
[2023-03-12] MEDS: FOLIC ACID 1 MG TABLET PO SCH (09:06)
[2023-03-12] MEDS: METOPROLOL SUCCINATE 25 MG ER TABLET PO SCH (09:06)
[2023-03-12 20:48] VITALS: BP 109/69; PULSE 74; RESP 18; TEMP 97.5
[2023-03-12] MEDS: ZOLPIDEM TARTRATE 10 MG TABLET PO PRN (21:11)
[2023-03-13 08:00] VITALS: BP 115/65; PULSE 83; RESP 18; TEMP 97.9
[2023-03-13] MEDS: ATORVASTATIN CALCIUM 40 MG TABLET PO SCH (08:38)
[2023-03-13] MEDS: METOPROLOL SUCCINATE 25 MG ER TABLET PO SCH (08:38)
[2023-03-13] MEDS: SERTRALINE HCL 100 MG TABLET PO SCH (08:38)
[2023-03-13] MEDS: AmLODIPine BESYLATE 10 MG TABLET PO SCH (08:39)
[2023-03-13] MEDS: FOLIC ACID 1 MG TABLET PO SCH (08:39)
[2023-03-13] MEDS: ASPIRIN 81 MG CHEWABLE TABLET PO SCH (08:40)
[2023-03-13 20:30] VITALS: BP 121/62; PULSE 74; RESP 18; TEMP 98.1
[2023-03-13] MEDS: HALOPERIDOL 5 MG TABLET PO PRN (21:10)
[2023-03-13] MEDS: ZOLPIDEM TARTRATE 10 MG TABLET PO PRN (21:10)
[2023-03-13 22:42] VITALS: BP 121/62; PULSE 74; RESP 18; TEMP 98.1
[2023-03-14] MEDS: SERTRALINE HCL 100 MG TABLET PO SCH (09:22)
[2023-03-14] MEDS: METOPROLOL SUCCINATE 25 MG ER TABLET PO SCH (09:22)
[2023-03-14] MEDS: ASPIRIN 81 MG CHEWABLE TABLET PO SCH (09:22)
[2023-03-14] MEDS: FOLIC ACID 1 MG TABLET PO SCH (09:22)
[2023-03-14] MEDS: AmLODIPine BESYLATE 10 MG TABLET PO SCH (09:23)
[2023-03-14] MEDS: ATORVASTATIN CALCIUM 40 MG TABLET PO SCH (09:23)
[2023-03-14 09:32] VITALS: BP 143/64; PULSE 91; RESP 16; TEMP 97.6
[2023-03-14 20:30] VITALS: BP 125/72; PULSE 78; RESP 19; TEMP 97.6
[2023-03-14] MEDS: ZOLPIDEM TARTRATE 10 MG TABLET PO PRN (21:10)
[2023-03-15] MEDS: METOPROLOL SUCCINATE 25 MG ER TABLET PO SCH (08:30)
[2023-03-15] MEDS: ATORVASTATIN CALCIUM 40 MG TABLET PO SCH (08:30)
[2023-03-15] MEDS: FOLIC ACID 1 MG TABLET PO SCH (08:30)
[2023-03-15] MEDS: SERTRALINE HCL 100 MG TABLET PO SCH (08:30)
[2023-03-15] MEDS: AmLODIPine BESYLATE 10 MG TABLET PO SCH (08:31)
[2023-03-15] MEDS: ASPIRIN 81 MG CHEWABLE TABLET PO SCH (08:32)
[2023-03-15 09:35] VITALS: BP 130/74; PULSE 79; RESP 18; TEMP 98
[2023-03-15] MEDS ORDERED: SERT-162 PO (14:23)
[2023-03-16] MEDS ORDERED: ATOR40TA28 PO (04:46)
[2023-03-16] MEDS ORDERED: AMLO-258 PO (04:46)
[2023-03-16] MEDS ORDERED: ASPI-1450 PO (04:46)
[2023-03-16] MEDS ORDERED: METO25XL PO (04:46)
[2023-03-16] MEDS ORDERED: SERT-162 PO ×2 (04:46→04:48)
[2023-03-16] MEDS ORDERED: FOLI-130 PO (04:46)
== END 2023-03-15 14:30 | disposition home or self-care (01) | DRG 751 ==
LOC: EMS 18:16 → 3EI 23:55 → 3EX 03-04 08:57
PROVIDERS: ADMIT Psychiatry & Neurology Psychiatry; ATTEND Psychiatry & Neurology Psychiatry
PROC: GZHZZZZ Group Psychotherapy (ICD-10-PCS; principal; 2023-03-01)
DX: F33.2 Major depressive disorder, recurrent severe without psychotic features (principal); U07.1 COVID-19; R45.851 Suicidal ideations; F41.9 Anxiety disorder, unspecified; G47.00 Insomnia, unspecified; R94.6 Abnormal results of thyroid function studies; E78.5 Hyperlipidemia, unspecified; I10 Essential (primary) hypertension; F10.229 Alcohol dependence with intoxication, unspecified; I73.9 Peripheral vascular disease, unspecified; Z87.891 Personal history of nicotine dependence; Z79.899 Other long term (current) drug therapy; Z79.82 Long term (current) use of aspirin
CPT/HCPCS: 80053; 80061; 80307; 81003; 83036; 84439; 84443; 85025; 87081; 99285; G0378; G0480

== ENCOUNTER 2023-12-06 18:25 | Inpatient (IN) | payer MEDICAID ==
[~2023-12-06] VITALS: Ht 162.6 cm; Wt 75.3 kg
[2023-12-06 18:00] VITALS: BP 102/75; PULSE 100; RESP 18; TEMP 98; O2SAT 97
[~2023-12-06 18:25] MED LIST changes: -CEPH-558 PO; -CHLO5CAP4 PO; -CYAN-53 PO; -LISI10TA24 PO; +SERT-162 PO; -THIA100T92 PO
[2023-12-07] VITALS (11 sets, daily range): BP systolic 96–165; BP diastolic 62–79; PULSE 76–87; RESP 17–20; TEMP 97–98.2; O2SAT 88–100
[2023-12-07] MEDS: AmLODIPine BESYLATE 10 MG TABLET PO SCH (09:00)
[2023-12-07] MEDS: METOPROLOL SUCCINATE 25 MG ER TABLET PO SCH (09:35)
[2023-12-07] MEDS: ATORVASTATIN CALCIUM 40 MG TABLET PO SCH (09:35)
[2023-12-07] MEDS: FOLIC ACID 1 MG TABLET PO SCH (09:35)
[2023-12-07] MEDS: ASPIRIN 81 MG CHEWABLE TABLET PO SCH (09:36)
[2023-12-07] MEDS ORDERED: DIAZEPAM 10 MG TABLET PO PRN (09:45)
[2023-12-07] MEDS ORDERED: LOPERAMIDE HCL 2 MG CAPSULE PO PRN (09:45)
[2023-12-07] MEDS ORDERED: GuaiFENesin/D-METHORPHAN [SUGAR-FREE] 200-20MG/10 ML SYRUP UDCUP PO PRN (09:45)
[2023-12-07] MEDS ORDERED: MAGNESIUM HYDROXIDE SUSPENSION 30 ML UDCUP PO PRN (09:45)
[2023-12-07] MEDS ORDERED: ACETAMINOPHEN 325 MG TABLET PO PRN (09:45)
[2023-12-07] MEDS ORDERED: MELATONIN 5 MG TABLET PO PRN (09:45)
[2023-12-07] MEDS ORDERED: TUBERCULIN, PURIFIED PROTEIN DERIVATIVE 5 TU/0.1 ML SYRINGE ID ONE (09:45)
[2023-12-07] MEDS ORDERED: MAG HYDROX/ALUMINUM HYD/SIMETH ES 30 ML SUSPENSION UDCUP PO PRN (09:45)
[2023-12-07] MEDS ORDERED: PROMETHAZINE HCL 25 MG TABLET PO PRN (09:45)
[2023-12-07] MEDS: ACAMPROSATE CALCIUM 333 MG DR TABLET PO SCH (12:22)
[2023-12-07] MEDS: THIAMINE 100 MG TABLET PO SCH (17:21)
[2023-12-07] MEDS: MELATONIN 5 MG TABLET PO SCH (21:18)
[2023-12-07] MEDS: NICOTINE 21 MG/24 HOUR PATCH TD PRN (21:19)
[2023-12-08] VITALS (7 sets, daily range): BP systolic 121–142; BP diastolic 69–73; PULSE 84–86; RESP 17–18; TEMP 97.2–98.2; O2SAT 96–100
[2023-12-08] MEDS ORDERED: DIAZEPAM 10 MG TABLET PO PRN (07:00)
[2023-12-08] MEDS ORDERED: SERTRALINE HCL 100 MG TABLET PO SCH (09:00)
[2023-12-08] MEDS: MULTIVITAMINS WITH MINERALS, THERAPEUTIC TABLET PO SCH (09:17)
[2023-12-08] MEDS: DULoxetine HCL 20 MG CAPSULE PO SCH (09:17)
[2023-12-08] MEDS: DIAZEPAM 10 MG TABLET PO SCH (09:17)
[2023-12-08] MEDS: GABAPENTIN 100 MG CAPSULE PO SCH (09:17)
[2023-12-08] MEDS: FOLIC ACID 1 MG TABLET PO SCH (11:07)
[2023-12-08 15:31] LABS: HEMOGLOBIN A1C 5.6 % (3.8-5.6)
[2023-12-08 21:53] LABS: FREE T4 (FREE THYROXINE) 0.84 ng/dL (0.76-1.46); THYROID STIMULATING HORMONE 4.49 uIU/mL (0.36-3.74)
[2023-12-08] MEDS: HydrOXYzine PAMOATE 50 MG CAPSULE PO PRN (22:08)
[2023-12-09 07:27] LABS: CHOL/HDL RATIO 3.4 (3.9-5.7)
[2023-12-09 09:30] VITALS: BP 111/59; PULSE 82; RESP 18; TEMP 97.1; O2SAT 98
[2023-12-09] MEDS: GABAPENTIN 100 MG CAPSULE PO SCH (10:18)
[2023-12-09] MEDS: DULoxetine HCL 30 MG CAPSULE PO SCH (10:19)
[2023-12-09 10:39] VITALS: BP 111/59; PULSE 82; RESP 18; TEMP 97.1; O2SAT 95
[2023-12-09 20:53] VITALS: BP 108/62; PULSE 85; RESP 18; TEMP 97.6; O2SAT 98
[2023-12-09] MEDS: HydrOXYzine HCL 50 MG TABLET PO SCH (21:55)
[2023-12-10] MEDS ORDERED: DIAZEPAM 5 MG TABLET PO PRN (07:00)
[2023-12-10] MEDS: DIAZEPAM 5 MG TABLET PO SCH (09:09)
[2023-12-10 09:30] VITALS: BP 120/67; PULSE 63; RESP 18; TEMP 97.2; O2SAT 95
[2023-12-10] MEDS ORDERED: DULO-114 PO (11:16)
[2023-12-10] MEDS ORDERED: ACAM333T7 PO (11:16)
[2023-12-10] MEDS ORDERED: MELA5TAB40 PO (11:16)
[2023-12-10] MEDS ORDERED: GABA-1216 PO (11:16)
[2023-12-10] MEDS ORDERED: HYDR-4584 PO (11:16)
[2023-12-10 12:44] VITALS: BP 120/67; PULSE 63; RESP 18; TEMP 97.2; O2SAT 95
[2023-12-10 20:58] VITALS: BP 128/75; PULSE 86; RESP 17; TEMP 97; O2SAT 98
[2023-12-11] MEDS: DIAZEPAM 5 MG TABLET PO PRN (08:41)
[2023-12-11 08:46] VITALS: BP 149/79; PULSE 99; RESP 17; TEMP 97.2; O2SAT 95
[2023-12-11 08:58] VITALS: BP 149/79; PULSE 99; RESP 18; TEMP 97.3; O2SAT 95
[2023-12-11 09:53] VITALS: BP 142/72; PULSE 95; RESP 19; TEMP 97.2; O2SAT 96
[2023-12-11 20:00] VITALS: BP 111/69; PULSE 83; RESP 19; TEMP 97.8; O2SAT 98
[2023-12-12 08:43] VITALS: BP 119/66; PULSE 85; RESP 18; TEMP 98.1; O2SAT 97
[2023-12-12 10:03] VITALS: BP 119/66; PULSE 85; RESP 18; TEMP 98.1; O2SAT 97
[2023-12-12 21:37] VITALS: BP 134/78; PULSE 86; RESP 17; TEMP 97.7; O2SAT 98
[2023-12-13] MEDS ORDERED: ATOR40TA28 PO (12:43)
[2023-12-13] MEDS ORDERED: AMLO-258 PO (12:43)
[2023-12-13] MEDS ORDERED: METO25XL PO (12:44)
== END 2023-12-13 13:00 | disposition home or self-care (01) | DRG 751 ==
LOC: 3EI 12-07 02:13
PROVIDERS: ADMIT Psychiatry & Neurology Psychiatry; ATTEND Psychiatry & Neurology Psychiatry
PROC: GZHZZZZ Group Psychotherapy (ICD-10-PCS; principal; 2023-12-07)
PROC: GZ51ZZZ Individual Psychotherapy, Behavioral (ICD-10-PCS; 2023-12-07)
PROC: GZ58ZZZ Individual Psychotherapy, Cognitive-Behavioral (ICD-10-PCS; 2023-12-07)
PROC: GZ56ZZZ Individual Psychotherapy, Supportive (ICD-10-PCS; 2023-12-08)
DX: F33.2 Major depressive disorder, recurrent severe without psychotic features (principal); R45.851 Suicidal ideations; E78.5 Hyperlipidemia, unspecified; F17.210 Nicotine dependence, cigarettes, uncomplicated; I73.9 Peripheral vascular disease, unspecified; F03.A0 Unspecified dementia, mild, without behavioral disturbance, psychotic disturbance, mood disturbance, and anxiety; J44.9 Chronic obstructive pulmonary disease, unspecified; F10.20 Alcohol dependence, uncomplicated; G89.29 Other chronic pain; I10 Essential (primary) hypertension; Z79.82 Long term (current) use of aspirin; Z79.899 Other long term (current) drug therapy; Z59.00 Homelessness unspecified; Z86.73 Personal history of transient ischemic attack (TIA), and cerebral infarction without residual deficits
CPT/HCPCS: 80061; 83036; 84439; 84443; 86592; 97116; 97162; 97165; 97535

== ENCOUNTER 2023-12-06 23:17 | Emergency (ER) | payer MEDICAID ==
[~2023-12-06] VITALS: Ht 162.6 cm; Wt 75.0 kg
[2023-12-07 00:09] LABS: BASOPHILS % (AUTO) 0.4 % (0.0-2.0); EOSINOPHILS % (AUTO) 2.8 % (1.0-6.0); HEMATOCRIT 36.5 % (36-46); HEMOGLOBIN 12.3 g/dL (12.0-16.0); LYMPHOCYTES # (AUTO) 1.8 K/uL (1.0-4.8); LYMPHOCYTES % (AUTO) 24.3 % (22.0-44.0); MEAN CORPUSCULAR HEMOGLOBIN 30.1 pg (26.0-34.0); MEAN CORPUSCULAR HGB CONC 33.6 G/dL (31.0-37.0); MEAN CORPUSCULAR VOLUME 90 fL (80-100); MONOCYTES # (AUTO) 1.2 K/uL (0.1-1.0); MONOCYTES % (AUTO) 16.8 % (2.0-9.0); NEUTROPHILS # (AUTO) 4.1 K/uL (1.8-7.7); NEUTROPHILS % (AUTO) 55.7 % (40.0-70.0); PLATELET COUNT (AUTO) 279 K/uL (150-450); RED BLOOD CELL COUNT(AUTO) 4.07 MIL/uL (4.00-5.20); RED CELL DISTRIBUTION WIDTH 13.9 % (11.5-14.5); WHITE BLOOD COUNT (AUTO) 7.4 K/uL (4.5-11.0)
[2023-12-07] MEDS: ACETAMINOPHEN 500 MG TABLET PO ONE (00:14)
[2023-12-07 00:19] LABS: ANION GAP 10 mmol/L (8-16); CALCIUM, TOTAL 8.7 mg/dL (8.8-10.5); CARBON DIOXIDE 28 mmol/L (22-29); CHLORIDE 102 mmol/L (98-107); CREATININE 0.67 mg/dL (0.60-1.30); GLOMERULAR FILTR. RATE CALC > 60 mL/min (>60); GLUCOSE,RANDOM 107 mg/dL (70-110); POTASSIUM 3.8 mmol/L (3.5-5.1); SODIUM SERUM 140 mmol/L (136-145); UREA NITROGEN, BLOOD 10 mg/dL (7-18)
[2023-12-07 00:27] LABS: ALCOHOL, BLOOD (SERUM) < 3 mg/dL (0-10)
[2023-12-07 00:39] LABS: PH,URINE DRUG SCREEN 5.5 (5.0-8.0)
[2023-12-07 00:41] LABS: TROPONIN I-HIGH SENSITIVITY Less Than 4 ng/L (<51)
[2023-12-07 00:46] LABS: COVID AG,FIA SOURCE NASAL SWAB
[2023-12-07 00:46] LABS: ALCOHOL, URINE DRUG SCREEN NEGATIVE (NEGATIVE); AMPHET/METH SCREEN,URINE NEGATIVE (NEGATIVE); BARBITURATE SCREEN, URINE NEGATIVE (NEGATIVE); BENZODIAZEPINES SCREEN,URINE NEGATIVE (NEGATIVE); CANNABINOID SCREEN,URINE NEGATIVE (NEGATIVE); COCAINE SCREEN,URINE NEGATIVE (NEGATIVE); METHADONE SCREEN, URINE NEGATIVE (NEGATIVE); OPIATE SCREEN,URINE NEGATIVE (NEGATIVE); PHENCYCLIDINE SCREEN,URINE NEGATIVE (NEGATIVE)
[2023-12-07 00:55] LABS: SARS-COV2 (COVID) ANTIGEN,FIA Negative (Negative)
[2023-12-07 03:34] VITALS: BP 165/75; PULSE 80; RESP 20; TEMP 98.2; O2SAT 98
== END 2023-12-07 02:30 | disposition admitted as inpatient to this hospital (09) ==
LOC: EDUNIT# 23:17 → EMS 23:17 → UNDOADMIN 12-07 02:13 → 3EI 12-07 02:13 → EMS 12-07 02:30
DX: R07.89 Other chest pain (principal); F10.20 Alcohol dependence, uncomplicated; F32.A Depression, unspecified; I10 Essential (primary) hypertension; Z20.822 Contact with and (suspected) exposure to COVID-19
CPT/HCPCS: 99285; 87426; 80048; 84484; 85025; 36415; 93005; 80307; 71045; G0480